=== PATIENT | female | born 1995 | race Caucasian/White ===

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

== ENCOUNTER → 2017-03-31 | Day surgery (SDC) | payer OTHER ==
[~2017-03-31] VITALS: Ht 167.6 cm; Wt 135.0 kg
[~2017-03-31] MED LIST changes: +ACET-1311 PO; -ADVIN25050 INH; -AMOX875T PO; -BCPILLS PO; +CEPH500C PO; +ENOX60IN SQ; +FLUT230A INH; +LIDOCAINE HCL 2% 2 ML VIAL (20MG/ML) ONE; +MIDAZOLAM HCL 1 MG/ML 2ML VIAL ONE; +OXYC-57 PO; +PANT40TA PO; +PROPOFOL IV EMULSION 10 MG/ML 20 ML VIAL IV ONE; +SODIUM CHLORIDE 0.9% 500ML 500 ML IV ONE
[2017-03-31 09:21] VITALS: Ht 167.6 cm; Wt 135.0 kg
--- NOTE | 2017-03-31 09:32 | Endo History and Physical ---
History & Physical Date of Service: Mar 31, 2017. Chief Complaint: gastric varices Referring Physician: Dr. Teja Ibarra History of Present Illness h/o bleeding varices Past Surgical History Hx Cardiac Surgery: No Hx Internal Defibrillator: No Hx Pacemaker: No Hx Abdominal Surgery: Yes (spleenectomy) Hx of Implantable Prosthesis: No Hx Cancer Surgery: No Hx Thoracic Surgery: No Hx Orthopedic: No Hx Urinary Tract Surgery: No Family History None Social History Smoking Status: Never Smoker Hx Substance Use: No Hx Alcohol Use: No Allergies Coded Allergies: Iodinated Diagnostic Agents (Verified Allergy, Intermediate, hives, 11/01/16 ) Current Medications Reported Home Medications Medications Dose Route/Sig Max Daily Dose Days Date Category Advair Hfa 230/21 Mcg (Fluticasone-Salmeterol 230/21 Mcg) 1 Aer Aer 1 Puffs INH BID 11/01/16 Reported Ventolin Hfa (Albuterol) 200 Puffs/87129 Mcg Aers 2-4 Puffs INH Q4H PRN 09/19/16 Reported Singulair (Montelukast Sodium) 10 Mg Tab 10 Mg PO DAILY 11/24/15 Reported Vital Signs Weight (Kilograms): 135 Height (Feet): 5 Height (Inches): 6 Physical Exam General Appearance: WD/WN, no apparent distress Assessment and Plan EGD today to re-evaluate varices
--- NOTE | 2017-03-31 10:23 | Discharge Instructions ---
Endoscopy Patient Instructions Date / Procedure(s) Performed Mar 31, 2017. EGD Allergy Information Coded Allergies: Iodinated Diagnostic Agents (Verified Allergy, Intermediate, hives, 11/01/16 ) Discharge Date / Findings Mar 31, 2017. coils visible in the stomach; small single column of varices in the esophagus. Medication Instructions Restart Stopped Medication(s): OK to resume home medications as above Provider Instructions Activity Restrictions - No exercising or heavy lifting for 24 hours. - Do not drink alcohol the day of the procedure. - Do not drive a car or operate machinery until the day after the procedure. - Do not make any important decisions or sign important papers in 24 hours after the procedure. Following Day: - Return to full activity which may include returning to work/school. Diet Start your diet with liquids and light foods (jello, soup, juice, toast). Then eat your usual diet if not nauseated. Treatment For Common After Affects For mild abdominal pain, bloating, or excessive gas: - Rest - Eat lightly - Lie on right side Follow-Up Information Follow-up with Dr. Teja Ibarra as scheduled Anesthesia Information What You Should Know You have had a procedure that required some medicine to reduce anxiety and discomfort. This treatment is called moderate sedation. After receiving the treatment, you may be sleepy, but you will be able to breathe on your own. The effects of the treatment may last for several hours. Follow these instructions along with Activity/Diet recommendations noted above: * Do NOT do anything where dizziness or clumsiness would be dangerous. * Rest quietly at home today, then you can be up and about tomorrow. * Have a responsible person stay with you the rest of today. * You may have had an I.V. today. If so, you may take the dressing off later today. Recommendations Call your doctor if: * Trouble breathing * Continuous vomiting for more than 24 hours * Temperature above 101 degrees * Severe abdominal pain or bloating * Pain not relieved by pain medicine ordered * There is increased drainage or redness from any incision * A large amount of rectal bleeding greater than 2-3 tablespoons. (If you had a polyp/s removed or have hemorrhoids, a small amount of blood - from the rectum is to be expected.) * You have any unanswered questions or concerns. IN THE EVENT OF A SERIOUS EMERGENCY, GO TO THE NEAREST EMERGENCY ROOM Your discharge instructions were prepared by provider Malini Adams. Patient Instructions Signature Page Gisselle Roger Patient (or Guardian) Signature/Date: I have read and understand the instructions given to me by my caregivers. Caregiver/RN/Doctor Signature/Date: The above-named patient and/or guardian has received patient instructions on this date. + Original Patient Signature Page (only) stays with chart. Please make copy for patient.
--- NOTE | 2017-03-31 10:30 | GI REPORT ---
Procedure Date: 03/31/2017 9:26 AM Procedure: Upper GI endoscopy Indications: Follow-up of esophageal varices with bleeding, Follow-up of gastric varices Medicines: Propofol per Anesthesia Complications: No immediate complications. Estimated blood loss: None. Estimated Blood Loss: Estimated blood loss: none. Procedure: Pre-Anesthesia Assessment: - Prior to the procedure, a History and Physical was performed, and patient medications, allergies and sensitivities were reviewed. The patient's tolerance of previous anesthesia was reviewed. - The risks and benefits of the procedure and the sedation options and risks were discussed with the patient. All questions were answered and informed consent was obtained. - Patient identification and proposed procedure were verified prior to the procedure by the physician and the nurse. The procedure was verified in the pre-procedure area in the procedure room. - Mental Status Examination: alert and oriented. Airway Examination: normal oropharyngeal airway and neck mobility. Respiratory Examination: clear to auscultation. CV Examination: normal. Abdominal Examination: bowel sounds present, abdomen soft and non-tender, no masses or organomegaly noted. - ASA Grade Assessment: II - A patient with mild systemic disease. After obtaining informed consent, the endoscope was passed under direct vision. Throughout the procedure, the patient's blood pressure, pulse, and oxygen saturations were monitored continuously. The Scope was introduced through the mouth, and advanced to the second part of duodenum. The upper GI endoscopy was accomplished without difficulty. The patient tolerated the procedure well. Findings: Grade I varices were found in the middle third of the esophagus. The entire examined stomach mucosa appears normal. Visible coils. The examined duodenum was normal. Impression: - Grade I esophageal varices. - Normal stomach. - Normal examined duodenum. - No specimens collected. Recommendation: - Discharge patient to home. Malini Adams D.O. Malini Adams DO 03/31/2017 10:29:45 AM This report has been signed electronically. Note Initiated On: 03/31/2017 9:26 AM I attest to the content of the Intraoperative Record and orders documented therein, exceptions below
[2017-03-31 10:54] VITALS: BP 118/79; PULSE 82; O2SAT 98
--- NOTE | 2017-03-31 11:05 | Anesthesiology Progress Note ---
Anesthesia Post Op Note Date & Time Mar 31, 2017 at 11:05 Vital Signs Pain Intensity: 0 Vital Signs Past 12 Hours Date Time Temp Pulse Resp B/P (MAP) Pulse Ox O2 Delivery O2 Flow Rate FiO2 03/31/17 10:54 82 20 118/79 (92) 98 Room Air 03/31/17 10:40 87 18 112/65 (81) 100 Room Air 03/31/17 10:28 61 18 95/54 (68) 100 Room Air 03/31/17 09:30 36.8 84 18 104/59 (74) 97 Room Air Notes Mental Status: alert / awake / arousable, participated in evaluation Pt Amnestic to Procedure: Yes Nausea / Vomiting: adequately controlled Pain: adequately controlled Airway Patency, RR, SpO2: stable & adequate BP & HR: stable & adequate Hydration State: stable & adequate Anesthetic Complications: no major complications apparent
== END | disposition home or self-care (01) ==
LOC: C.GI 08:58
PROVIDERS: ATTEND Internal Medicine
DX: I85.01 Esophageal varices with bleeding (principal)

== ENCOUNTER 2017-05-10 07:08 | Day surgery (SDC) | payer OTHER ==
[2017-05-04 11:26] VITALS: BMI 22.0
[~2017-05-10] VITALS: Ht 167.6 cm; Wt 62.0 kg
[~2017-05-10 07:08] MED LIST changes: -ACET-1311 PO; +CEFAZOLIN 2000 MG/60 ML D5W IV SCH; -CEPH500C PO; +DEXAMETHASONE SOD INJ 4 MG/ML VIAL ONE; -ENOX60IN SQ; +FENTANYL CITRATE INJ 50 MCG/1 ML 2 ML VIAL ONE; +GLYCOPYRROLATE INJ 0.2 MG/ML VIAL ONE; +LACTATED RINGER'S 1000ML 1,000 ML IV SCH; +NEOSTIGMINE METHYLSULFATE 5 MG/5 ML SYR ONE; +ONDANSETRON INJ 2 MG/ML 2 ML VIAL ONE; -OXYC-57 PO; -PANT40TA PO; +ROCURONIUM BROMIDE 10 MG/ML 5 ML VIAL ONE; -SODIUM CHLORIDE 0.9% 500ML 500 ML IV ONE
[2017-05-10 07:37] VITALS: BP 108/62; PULSE 82; TEMP 36.8; O2SAT 96; Ht 167.6 cm; Wt 62.0 kg
[2017-05-10 08:45] LABS: PREG INTERNAL NEGATIVE QC NEG CLEAR BACKGROUND; PREG INTERNAL POSITIVE QC POS CONTROL LINE
[2017-05-10] MEDS ORDERED: ATROPINE SULFATE 0.1 MG/ML 5ML SYR IV PRN (09:00)
[2017-05-10] MEDS ORDERED: EpHEDrine SULFATE INJ 50 MG/ML AMP IV PRN (09:00)
[2017-05-10] MEDS ORDERED: PHENYLEPHRINE 100MCG/ML 5ML SYR IV PRN (09:00)
[2017-05-10] MEDS ORDERED: ONDANSETRON INJ 2 MG/ML 2 ML VIAL IV PRN ×2 (09:00→11:00)
--- NOTE | 2017-05-10 09:09 | History & Physical Bridge Note ---
H&P Re-Evaluation Bridge Note: I have examined the patient, reviewed the History & Physical and in the interval since the performance of the History & Physical I have noted the following changes of clinical significance: No changes noted
[2017-05-10] MEDS ORDERED: BUPIVACAINE/EPINEPHRINE 0.5% MPF 1:200,000 10 ML VIAL ONE (09:39)
--- NOTE | 2017-05-10 09:43 | [facility] Operative Report ---
Operative Report Operative Date May 10, 2017. Pre-Operative Diagnosis Incisional hernia; large painful scar Post-Operative Diagnosis same with adhesions Procedure(s) Performed open incisional hernia repair with vicryl mesh;enterolysis;scar revision Surgeon abdelrahman Study Hall Supervisor Surgeon(s) Tony Benavidez PA-C Estimated Blood Loss 20 cc Findings 3 cm hernia;adhesions Anesthesia get Complication(s) None Disposition Recovery Room / PACU Description of Procedure After informed consent was obtained patient was taken the operating suite placed in supine position. After successful intubation the abdomen was sterilely prepped and draped in usual fashion. We made a wide elliptical incision around her previous widened and thickened abdominal scar. We began by using electrocautery to remove the scar and one large piece. This revealed approximately 3 cm hernia in the upper pole of the incision. With able take down the hernia sac using Metzenbaum scissors exposing the fascia below. We grabbed the fascia with Allis clamps and elevated it. There were some adhesions on the undersurface of the fascia. These were taken down using sharp scissor lysis as well as traction and countertraction. Once this was accomplished I then used 0 Ethibond in interrupted [id number] fashion to primarily close the defect. Once the defect was closed we then skeletonized some fascia for several centimeters in all directions around it. Because of discussions with the patient and family prior we elected to use an absorbable mesh. I placed a Vicryl mesh as an onlay securing it to the fascia using 0 Ethibond in interrupted fashion. The mesh did overlap for several centimeters in all directions. We did irrigate the wound prior to placing the mesh as well as after placing the mesh. Any small bleeding points were controlled using electrocautery. We then closed the incision in multiple layers using 2-0 Vicryl for deep layers and 4-0 Monocryl for skin. Marcaine with epinephrine was injected around the incision for postoperative analgesia. Benzoin Steri- Strips gauze and tape were used for dressing. The patient was awaken extubated and transferred recovery in stable condition I attest to the content of the Intraoperative Record and any orders documented therein. Any exceptions are noted below.
[2017-05-10] MEDS ORDERED: MoRPHine SULFATE 4 MG/ML 1 ML CARP\\VIAL IV PRN (11:00)
[2017-05-10] MEDS ORDERED: LACTATED RINGER'S 1000ML 1,000 ML IV SCH (11:00)
[2017-05-10] MEDS ORDERED: OXYCODONE/ACETAMINOPHEN 5-325 TAB PO PRN (11:00)
[2017-05-10] MEDS ORDERED: OXYC-57 PO (11:03)
--- NOTE | 2017-05-10 11:05 | Discharge Instructions ---
Discharge Instructions Date of Service May 10, 2017. Visit Reason for Visit: Incisional Hernia Discharge Discharge Diagnosis / Problem: repair of hernia, scar revision Discharge Goals Goal(s): Decrease discomfort Activity Recommendations Activity Limitations: as noted below Lifting Limitations: no more than 10 pounds Shower/Bathe: tomorrow Driving or Machine Use: resume 3 days after discharge (if not taking Percocet) Anesthesia . Post Anesthesia Instructions: If you have had General Anesthesia or IV Sedation: * Do not drive today. * Resume driving when surgeon permits. * Do not make important decisions or sign legal documents today. * Call surgeon for: 1. Temperature elevations greater than 101 degrees F. 2. Uncontrollable pain. 3. Excessive bleeding. 4. Persistent nausea and vomiting. 5. Medication intolerance (nausea, vomiting or rash). * For nausea and vomiting use only clear liquids such as: tea, soda, bouillon until nausea subsides, then gradually increase diet as tolerated. * If you have any concerns or questions, call your surgeon's office. If physician is unavailable and it is an emergency, call 911 or go to the nearest emergency room. . Instructions / Follow-Up Instructions / Follow-Up Dr. French in 1-2 weeks as planned, call [phone] if you have any questions or need to schedule Diet Recommendations Recommended Home Diet: no limitations Procedures Procedures Performed: Open Incisional Hernia Repair with Vicryl Mesh Pending Studies Studies pending at discharge: no Medical Emergencies . Who to Call and When: Medical Emergencies: If at any time you feel your situation is an emergency, please call 911 immediately. . Non-Emergent Contact Non-Emergency issues call your: Surgeon Call Non-Emergent contact if: you have a fever, temperature is above 101.5, your pain is not controlled, wound has increased drainage, wound has increased redness, you have any medication questions . . "Provider Documentation" section prepared by Maurilio Benavidez. .
[2017-05-10] MEDS: HYDROmorphone INJ 2 MG/ML SYR/VIAL IV PRN ×4 (11:12→11:27)
[2017-05-10 12:02] VITALS: BP 98/74; PULSE 90; TEMP 37; O2SAT 91
[2017-05-10 12:30] VITALS: BP 103/63; PULSE 90; TEMP 36.8; O2SAT 96
--- NOTE | 2017-05-10 12:45 | Anesthesiology Progress Note ---
Anesthesia Post Op Note Date & Time May 10, 2017 at 12:45 Vital Signs Pain Intensity: 5 Vital Signs Past 12 Hours Date Time Temp Pulse Resp B/P (MAP) Pulse Ox O2 Delivery O2 Flow Rate FiO2 05/10/17 12:30 36.8 90 18 103/63 96 Nasal Cannula 2 05/10/17 12:02 37.0 90 18 98/74 91 Room Air 05/10/17 11:50 36.8 92 21 108/76 92 Room Air 05/10/17 11:40 36.8 85 21 106/70 99 Mask 10 05/10/17 11:30 99 21 113/73 99 Mask 10 05/10/17 11:20 95 21 118/70 100 Mask 10 05/10/17 11:10 106 21 122/79 100 Mask 10 05/10/17 11:04 37.5 104 21 128/81 100 Mask 10 05/10/17 07:37 36.8 82 18 108/62 (77) 96 Room Air Notes Mental Status: alert / awake / arousable, participated in evaluation Pt Amnestic to Procedure: Yes Nausea / Vomiting: adequately controlled Pain: adequately controlled Airway Patency, RR, SpO2: stable & adequate BP & HR: stable & adequate Hydration State: stable & adequate Anesthetic Complications: no major complications apparent
[2017-05-10 13:00] VITALS: BP 103/63; PULSE 83; TEMP 36.4; O2SAT 92
[2017-05-10] MEDS ORDERED: NURSING VERBAL MED ORDER ONE (13:15)
[2017-05-10] MEDS ORDERED: DEXAMETHASONE INJ 4 MG in SYRINGE 0 ML IV ONE (13:30)
[2017-05-10 13:35] VITALS: BP 106/58; PULSE 75; O2SAT 96
[2017-05-10 14:00] VITALS: BP 110/57; PULSE 87; TEMP 36.4; O2SAT 95
== END 2017-05-10 14:32 | disposition home or self-care (01) ==
LOC: C.OR 07:08
PROVIDERS: ATTEND Surgery
DX: K43.2 Incisional hernia without obstruction or gangrene (principal); I81 Portal vein thrombosis; Z79.899 Other long term (current) drug therapy; L90.5 Scar conditions and fibrosis of skin

== ENCOUNTER 2017-06-18 09:10 | Observation (INO) | payer OTHER ==
[~2017-06-18] VITALS: Ht 167.6 cm; Wt 61.6 kg
[~2017-06-18 09:10] MED LIST changes: -CEFAZOLIN 2000 MG/60 ML D5W IV SCH; -DEXAMETHASONE SOD INJ 4 MG/ML VIAL ONE; -FENTANYL CITRATE INJ 50 MCG/1 ML 2 ML VIAL ONE; -GLYCOPYRROLATE INJ 0.2 MG/ML VIAL ONE; -LACTATED RINGER'S 1000ML 1,000 ML IV SCH; -LIDOCAINE HCL 2% 2 ML VIAL (20MG/ML) ONE; -MIDAZOLAM HCL 1 MG/ML 2ML VIAL ONE; -NEOSTIGMINE METHYLSULFATE 5 MG/5 ML SYR ONE; -ONDANSETRON INJ 2 MG/ML 2 ML VIAL ONE; +OXYC-57 PO; -PROPOFOL IV EMULSION 10 MG/ML 20 ML VIAL IV ONE; -ROCURONIUM BROMIDE 10 MG/ML 5 ML VIAL ONE
[2017-06-18] MEDS ORDERED: SODIUM CHLORIDE 0.9% 1000ML 1,000 ML IV STA (09:34)
[2017-06-18 09:57] LABS: BASO % 0.9 %; BASO ABS # 0.06 K/uL (0-0.2); COMPLETE YES; EOS % 6.3 %; HEMATOCRIT 42.1 % (37-47); IG% 0.2 %; LYMPH % 30.5 %; MEAN CELL VOLUME 82.7 fL (80-100); MEAN CORPUSCULAR HEMOGLOBIN 27.3 pg (25-34); MEAN PLATELET VOLUME 9.5 fL (7.4-10.4); NEUT % 53.1 %; PLATELET COUNT 422 K/uL (130-400); RED BLOOD COUNT 5.09 M/uL (4.2-5.4); WHITE BLOOD COUNT 6.56 K/uL (4.8-10.8)
[2017-06-18 10:07] LABS: INR 1.1 (0.9-1.1); PROTHROMBIN TIME (PATIENT) 11.4 SECONDS (9.0-12.0)
[2017-06-18 10:20] LABS: CALCIUM 9.6 mg/dl (8.5-10.1); CREATININE 0.72 mg/dl (0.60-1.20); POTASSIUM 3.8 mmol/L (3.5-5.1)
[2017-06-18] MEDS ORDERED: PANTOprazole INJ 80 MG in DEXTROSE 5% 100ML IV ONE (11:00)
[2017-06-18 11:03] VITALS: O2SAT 96; Ht 167.6 cm; Wt 61.6 kg
[2017-06-18] MEDS ORDERED: OCTREOTIDE IV BOLUS & DRIP IV STA ×2 (11:06→11:52)
[2017-06-18] MEDS ORDERED: PANTOprazole INJ 40 MG in DEXTROSE 5% 100ML IV SCH (11:15)
--- NOTE | 2017-06-18 11:43 | Gastrointestinal Consultation ---
Gastrointestinal Consultation Date of Consultation: Jun 18, 2017 Attending Physician: Zachary Consulting Physician: Carl Reason for Consultation: Variceal bleed History of Present Illness Patient is a 22 year old female w/ history of variceal bleed on 09/20/16 due to gastric varices as a result of portal vein thrombosis. Pt was hypotensive during EGD, scope withdrawn and a Bharat tube was placed. She was transferred to [facility] [place], underwent IR coiling or her gastric varices without hemostasis. She was transferred to [facility], where she underwent splenectomy ( splenorenal shunt had been planned, but prior endovascular intervention made this problematic). Pt had repeat EGD in March with small esophageal varices. Doing well since March, history of NSAIDs use BID x 2 days, and some nausea. Had episode of hematemesis this AM that was bright red, no clots. No coffee ground emesis. No black or bloody stools. No abdominal pain. VSS, H&H stable. Past Medical/Surgical History Medical Problems: (1) Upper GI hemorrhage Status: Acute Past Medical History: varices Past Surgical History: EGD, splenectomy Family History Patient reports no known family medical history. Social History Smoking Status: Never Smoker Alcohol Use: occasionally Drug Use: none Marital Status: single Occupation Status: [employer] student Allergies Coded Allergies: Iodinated Diagnostic Agents (Verified Allergy, Intermediate, hives, ) Current Medications Home Meds and Scripts Medications Dose Route/Sig Max Daily Dose Days Date Category Advair Hfa 230/21 Mcg (Fluticasone-Salmeterol 230/21 Mcg) 1 Aer Aer 1 Puffs INH BID 11/01/16 Reported Ventolin Hfa (Albuterol) 200 Puffs/44488 Mcg Aers 2-4 Puffs INH Q4H PRN 09/19/16 Reported Review of Systems Constitutional: No fever, No chills Respiratory: No cough Cardiac: No chest pain, No edema Abdomen: + vomiting, + GI bleeding, No pain, No nausea, No diarrhea, No constipation Physical Exam Date Time Temp Pulse Resp B/P (MAP) Pulse Ox O2 Delivery O2 Flow Rate FiO2 06/18/17 11:03 96 Room Air 06/18/17 10:11 83 16 112/67 96 Room Air 06/18/17 09:45 98 06/18/17 09:40 96 Room Air 06/18/17 09:20 36.9 94 16 115/69 96 Room Air General Appearance: no apparent distress Eyes: PERRL ENT: hearing grossly normal Neck: supple Respiratory/Chest: lungs clear Cardiovascular: regular rate, rhythm, no edema Abdomen: normal bowel sounds, non tender, soft, no organomegaly Neurologic/Psych: alert, normal mood/affect, oriented x 3 Skin: normal color, no jaundice Laboratory Results Last 24 Hours Test 06/18/17 09:47 White Blood Count 6.56 K/uL Red Blood Count 5.09 M/uL Hemoglobin 13.9 g/dL Hematocrit 42.1 % Mean Corpuscular Volume 82.7 fL Mean Corpuscular Hemoglobin 27.3 pg Mean Corpuscular Hemoglobin Concent 33.0 g/dl Platelet Count 422 K/uL Mean Platelet Volume 9.5 fL Neutrophils (%) (Auto) 53.1 % Lymphocytes (%) (Auto) 30.5 % Monocytes (%) (Auto) 9.0 % Eosinophils (%) (Auto) 6.3 % Basophils (%) (Auto) 0.9 % Neutrophils # (Auto) 3.49 K/uL Lymphocytes # (Auto) 2.00 K/uL Monocytes # (Auto) 0.59 K/uL Eosinophils # (Auto) 0.41 K/uL Basophils # (Auto) 0.06 K/uL RDW Standard Deviation 57.1 fL RDW Coefficient of Variation 18.8 % Immature Granulocyte % (Auto) 0.2 % Immature Granulocyte # (Auto) 0.01 K/uL Prothrombin Time 11.4 SECONDS Prothromb Time International Ratio 1.1 Activated Partial Thromboplast Time 25.0 SECONDS Partial Thromboplastin Ratio 1.0 Sodium Level 140 mmol/L Potassium Level 3.8 mmol/L Chloride Level 108 mmol/L Carbon Dioxide Level 25 mmol/L Anion Gap 7.0 mmol/L Blood Urea Nitrogen 11 mg/dl Creatinine 0.72 mg/dl Est Creatinine Clear Calc Drug Dose 116.6 ml/min Estimated GFR () 139.7 Estimated GFR (Non- 120.6 BUN/Creatinine Ratio 15.0 Random Glucose 85 mg/dl Calcium Level 9.6 mg/dl Total Bilirubin 0.7 mg/dl Direct Bilirubin 0.2 mg/dl Aspartate Amino Transf (AST/SGOT) 15 U/L Alanine Aminotransferase (ALT/SGPT) 26 U/L Alkaline Phosphatase 69 U/L Total Protein 7.9 gm/dl Albumin 4.0 gm/dl Lipase 143 U/L Impression 22 year old female w/ history of esophageal bleed in August seen in ED for one isolated episode of hematemesis, suspect variceal bleed. VSS, H&H stable. Admit to floor. Plan NPO EGD IV Octreotide bolus and drip IV Rocephin IV PPI bolus and drip Trend H&H Transfuse for Hgb < 8 No NSAID ATTESTATION: I have performed a history and physical examination of this patient and reviewed the electronic record. Specifically, on physical examination she is hemodynamically stable without abdominal tenderness. I have discussed the case with RICHARD Beltran. The above note reflects my findings, conclusions, and recommendations. Maciel Henry MD
[2017-06-18] MEDS ORDERED: OCTREOTIDE ACETATE INJ 500 MCG in NSS 100ML IV SCH (12:00)
[2017-06-18] MEDS ORDERED: OCTREOTIDE ACETATE INJ 100 MCG in SYRINGE 9 ML IV ONE (12:00)
[2017-06-18] MEDS ORDERED: ONDANSETRON INJ 2 MG/ML 2 ML VIAL IV PRN ×2 (12:00→14:00)
[2017-06-18] MEDS ORDERED: ONDANSETRON INJ 2 MG/ML 2 ML VIAL ONE ×2 (12:03→14:48)
--- NOTE | 2017-06-18 12:04 | History and Physical ---
History & Physical Date & Time of Service: Jun 18, 2017 at 11:54 Chief Complaint: Vomiting Blood Primary Care Physician: Teja Alfonso M.D. History of Present Illness Source: patient Pt is a 22 yo female who presents to ER with am episode of hematemesis this AM. Pt reports just one episode with only a small amt she brought up noted to be bright red. Pt reports having a productive cough past 2 days and taking cple ibuprofen tablets yesterday. Pt has notable hx of varcieal bleed on 09/21/16 in which [place] was [place] [facility] and then transferred to [facility] in which she had underwent IR coiling and subsequently a splenectomy. Pt denies any fevers, chills, abd pain, N/V/D, blood in stools. Family History Patient reports no known family medical history. Social History Smoking Status: Never Smoker Smokeless Tobacco Use: Yes Drug Use: none Marital Status: single Occupational Status: [employer] student Multi-Drug Resistant Organisms History of MDRO: No Allergies Coded Allergies: Iodinated Diagnostic Agents (Verified Allergy, Intermediate, hives, ) Home Medications Scheduled Fluticasone-Salmeterol 230/21 Mcg (Advair Hfa 230/21 Mcg), 1 PUFFS INH BID Scheduled PRN Albuterol Hfa (Ventolin Hfa), 2-4 PUFFS INH Q4H PRN for SOB/Wheezing Review of Systems Constitutional: No fever, No chills, No sweats, No weight loss, No weakness Respiratory: + cough, + sputum, No wheezing, No shortness of breath, No dyspnea on exertion, No dyspnea at rest Cardiovascular: No chest pain, No orthopnea, No PND, No edema Abdomen: + GI bleeding, No pain, No nausea, No vomiting, No diarrhea Musculoskeletal: No joint pain, No muscle pain, No swelling, No calf pain Genitourinary - Female: No dysuria, No urinary frequency, No urinary urgency, No urinary incontinence Neurologic: No memory loss, No paralysis, No weakness, No numbness/tingling Psychiatric: No depression symptoms, No anhedonism, No anxiety, No insomnia Endocrine: No fatigue, No excessive thirst, No excessive urination Integumentary: No rash, No itch, No new/changing skin lesions Allergic / Immunologic: No environmental allergies, No seasonal allergies Physical Exam Vital Signs Date Time Temp Pulse Resp B/P (MAP) Pulse Ox O2 Delivery O2 Flow Rate FiO2 06/18/17 11:03 96 Room Air 06/18/17 10:11 83 16 112/67 96 Room Air 06/18/17 09:45 98 06/18/17 09:40 96 Room Air 06/18/17 09:20 36.9 94 16 115/69 96 Room Air General Appearance: WD/WN, no apparent distress Head: normocephalic, atraumatic Eyes: normal inspection, PERRL, EOMI, sclerae normal Neck: supple, no adenopathy, thyroid normal, no JVD Respiratory/Chest: chest non-tender, lungs clear, normal breath sounds, no respiratory distress Cardiovascular: regular rate, rhythm, no edema, no gallop, no JVD Abdomen/GI: normal bowel sounds, non tender, soft, no organomegaly Extremities/Musculoskelatal: normal inspection, no calf tenderness, normal capillary refill, no pedal edema Neurologic/Psych: no motor/sensory deficits, alert, normal mood/affect, normal reflexes, oriented x 3 Skin: normal color, warm/dry, no rash Lymphatic: no adenopathy Diagnostics Laboratory Results Results Past 24 Hours Test 06/18/17 09:47 Range/Units White Blood Count 6.56 4.8-10.8 K/uL Red Blood Count 5.09 4.2-5.4 M/uL Hemoglobin 13.9 12.0-16.0 g/dL Hematocrit 42.1 37-47 % Mean Corpuscular Volume 82.7 80-100 fL Mean Corpuscular Hemoglobin 27.3 25-34 pg Mean Corpuscular Hemoglobin Concent 33.0 32-36 g/dl Platelet Count 422 130-400 K/uL Mean Platelet Volume 9.5 7.4-10.4 fL Neutrophils (%) (Auto) 53.1 % Lymphocytes (%) (Auto) 30.5 % Monocytes (%) (Auto) 9.0 % Eosinophils (%) (Auto) 6.3 % Basophils (%) (Auto) 0.9 % Neutrophils # (Auto) 3.49 1.4-6.5 K/uL Lymphocytes # (Auto) 2.00 1.2-3.4 K/uL Monocytes # (Auto) 0.59 0.11-0.59 K/uL Eosinophils # (Auto) 0.41 0-0.5 K/uL Basophils # (Auto) 0.06 0-0.2 K/uL RDW Standard Deviation 57.1 36.4-46.3 fL RDW Coefficient of Variation 18.8 11.5-14.5 % Immature Granulocyte % (Auto) 0.2 % Immature Granulocyte # (Auto) 0.01 0.00-0.02 K/uL Prothrombin Time 11.4 9.0-12.0 SECONDS Prothromb Time International Ratio 1.1 0.9-1.1 Activated Partial Thromboplast Time 25.0 21.0-31.0 SECONDS Partial Thromboplastin Ratio 1.0 Sodium Level 140 136-145 mmol/L Potassium Level 3.8 3.5-5.1 mmol/L Chloride Level 108 98-107 mmol/L Carbon Dioxide Level 25 21-32 mmol/L Anion Gap 7.0 3-11 mmol/L Blood Urea Nitrogen 11 7-18 mg/dl Creatinine 0.72 0.60-1.20 mg/dl Est Creatinine Clear Calc Drug Dose 116.6 ml/min Estimated GFR () 139.7 Estimated GFR (Non- 120.6 BUN/Creatinine Ratio 15.0 10-20 Random Glucose 85 70-99 mg/dl Calcium Level 9.6 8.5-10.1 mg/dl Total Bilirubin 0.7 0.2-1 mg/dl Direct Bilirubin 0.2 0-0.2 mg/dl Aspartate Amino Transf (AST/SGOT) 15 15-37 U/L Alanine Aminotransferase (ALT/SGPT) 26 12-78 U/L Alkaline Phosphatase 69 45-117 U/L Total Protein 7.9 6.4-8.2 gm/dl Albumin 4.0 3.4-5.0 gm/dl Lipase 143 73-393 U/L Impression Assessment and Plan Pt is a 22 yo female who present to ER with hematemesis Hematemesis with hx of variceal bleed this past trish. Hg and vitals stable at this time. Will place on octreotide drip in addition to protonix drip. No further episodes noted in ER. GI consulted and will do EGD this AM. Cont NPO status. Started on IV NS at 100 cc/hr. Will obtain serial HHs. Pt will be placed on observation telemetry. Tachycardia likely related to anxiety/GI bleed, cont to monitor pt is FULL CODE Advanced Directives Existing Living Will: No Existing Power of Audio Narrator: No VTE Prophylaxis VTE Risk Assessment Done? Y/N: Yes Risk Level: Moderate
[2017-06-18] MEDS ORDERED: ALBUTEROL HFA 8 GM INHALER INH PRN (12:15)
[2017-06-18] MEDS ORDERED: SUCCINYLCHOLINE CHLORIDE 20 MG/ML 10 ML VIAL IV ONE (13:32)
[2017-06-18] MEDS ORDERED: PROPOFOL IV EMULSION 10 MG/ML 20 ML VIAL IV ONE (13:32)
[2017-06-18] MEDS ORDERED: LIDOCAINE HCL 2% 2 ML VIAL (20MG/ML) ONE (13:32)
[2017-06-18] MEDS ORDERED: MIDAZOLAM HCL 1 MG/ML 2ML VIAL ONE (13:33)
[2017-06-18] MEDS ORDERED: FENTANYL CITRATE INJ 50 MCG/1 ML 2 ML VIAL ONE (13:33)
[2017-06-18] MEDS ORDERED: EpHEDrine SULFATE INJ 50 MG/ML AMP IV PRN (14:00)
[2017-06-18] MEDS ORDERED: ATROPINE SULFATE 0.1 MG/ML 5ML SYR IV PRN (14:00)
[2017-06-18] MEDS ORDERED: FENTANYL CITRATE INJ 50 MCG/1 ML 2 ML VIAL IV PRN (14:00)
[2017-06-18] MEDS ORDERED: IV FLUIDS COMPLETED PRN (14:15)
[2017-06-18] MEDS ORDERED: DEXAMETHASONE SOD INJ 4 MG/ML VIAL ONE (14:48)
--- NOTE | 2017-06-18 14:59 | GI REPORT ---
Procedure Date: 06/18/2017 1:44 PM Procedure: Upper GI endoscopy Indications: Hematemesis Medicines: General Anesthesia Complications: No immediate complications. Estimated blood loss: None. Estimated Blood Loss: Estimated blood loss: none. Procedure: Pre-Anesthesia Assessment: - Prior to the procedure, a History and Physical was performed, and patient medications, allergies and sensitivities were reviewed. The patient's tolerance of previous anesthesia was reviewed. - ASA Grade Assessment: III - A patient with severe systemic disease. After obtaining informed consent, the endoscope was passed under direct vision. Throughout the procedure, the patient's blood pressure, pulse, and oxygen saturations were monitored continuously. The Scope was introduced through the mouth, and advanced to the third part of duodenum. The upper GI endoscopy was accomplished with ease. The patient tolerated the procedure well. Findings: Small (< 5 mm) varices were found in the lower third of the esophagus. A large tangle of vascular coil was found extruding through the gastic wall in the proximal body, with a single strand extending through the stomach beyond the distal duodenum. There was no active bleeding but there was a small clot in the coil that easily washed away. There is no endoscopic evidence of varices in the entire examined stomach. The examined duodenum was normal. Impression: - Small (< 5 mm) esophageal varices. - A vascular coil was found extruding through the wall of the proximal stomach (see above and photos). - Normal examined duodenum. - No specimens collected. Recommendation: - Consider transfer to tertiary care institution. CT abd/pelvis Maciel Henry M.D. Maciel Henry MD 06/18/2017 2:58:32 PM This report has been signed electronically. Note Initiated On: 06/18/2017 1:44 PM I attest to the content of the Intraoperative Record and orders documented therein, exceptions below
--- NOTE | 2017-06-18 15:17 | Anesthesiology Progress Note ---
Anesthesia Post Op Note Date & Time Jun 18, 2017 at 15:17 Vital Signs Pain Intensity: 0 Vital Signs Past 12 Hours Date Time Temp Pulse Resp B/P (MAP) Pulse Ox O2 Delivery O2 Flow Rate FiO2 06/18/17 15:15 37 95 20 114/62 99 Nasal Cannula 3 06/18/17 15:05 91 20 114/60 99 Nasal Cannula 3 06/18/17 14:55 97 20 106/61 99 Oxymask 10 06/18/17 14:45 37.2 112 20 107/61 99 Oxymask 10 06/18/17 13:44 84 18 102/70 96 06/18/17 13:19 82 16 101/58 96 Room Air 06/18/17 12:01 88 20 112/82 96 Room Air 06/18/17 11:03 96 Room Air 06/18/17 10:11 83 16 112/67 96 Room Air 06/18/17 09:45 98 06/18/17 09:40 96 Room Air 06/18/17 09:20 36.9 94 16 115/69 96 Room Air Notes Mental Status: alert / awake / arousable, participated in evaluation Pt Amnestic to Procedure: Yes Nausea / Vomiting: adequately controlled Pain: adequately controlled Airway Patency, RR, SpO2: stable & adequate BP & HR: stable & adequate Hydration State: stable & adequate Anesthetic Complications: no major complications apparent
[2017-06-18] MEDS ORDERED: INFLUENZA ADMINISTRATION CHARGE ONE (15:30)
[2017-06-18] MEDS ORDERED: INFLUENZA VIRUS QUAD VACCINE 0.5 ML SYR IM. ONE (15:30)
--- NOTE | 2017-06-18 15:40 | EMERGENCY ROOM VISIT NOTE ---
History Report prepared by Samuel: Yolis Mayo Under the Supervision of: Dr. Pete Sharma D.O. First contact with patient: 09:33 Chief Complaint: VOMITING Stated Complaint: VOMITING BLOOD Nursing Triage Summary: Pt c/o puking up blood. States she vomited one time. Denies abdominal pain, diarrhea. Hx varicies in her esophagus. 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 April surgery for hernia at incision site. History of Present Illness The patient is a 22 year old female who presents to the Emergency Room with complaints of one episode of hematemesis that occurred this morning. 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 She states that she has been feeling nauseous all week and reports one episode of hematemesis today. 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 She states that she had a hernia repaired in April. The patient reports a history of a peptic ulcer. She denies being on blood thinners and denies any clotting disorders. The patient states that when she vomited blood this morning, she denies it being more than her last time. She states that her last menstrual cycle was 1 week ago, noting that it was normal. Pt denies headache, change in vision, fevers, chest pain, shortness of breath , diarrhea, pain with urination, hematochezia and melena. Source of History: patient Onset: this morning Position: other (global) Quality: other (hematemesis) Timing: other (one episode) Associated Symptoms: + nausea, + vomiting Review of Systems See HPI for pertinent positives & negatives. A total of 10 systems reviewed and were otherwise negative. Past Medical & Surgical Medical Problems: (1) Asthma (2) GIB (gastrointestinal bleeding) (3) Hematemesis Social History Problems: (1) Uses control Family History Patient reports no known family medical history. Social History Smoking Status: Never Smoker Alcohol Use: occasionally Drug Use: none Marital Status: single Occupation Status: [employer] student Current/Historical Medications Scheduled Fluticasone-Salmeterol 230/21 Mcg (Advair Hfa 230/21 Mcg), 1 PUFFS INH BID Scheduled PRN Albuterol Hfa (Ventolin Hfa), 2-4 PUFFS INH Q4H PRN for SOB/Wheezing Allergies Coded Allergies: Iodinated Diagnostic Agents (Verified Allergy, Intermediate, hives, ) Physical Exam Vital Signs Date Time Temp Pulse Resp B/P (MAP) Pulse Ox O2 Delivery O2 Flow Rate FiO2 06/18/17 15:15 37 95 20 114/62 99 Nasal Cannula 3 06/18/17 15:05 91 20 114/60 99 Nasal Cannula 3 06/18/17 14:55 97 20 106/61 99 Oxymask 10 06/18/17 14:45 37.2 112 20 107/61 99 Oxymask 10 06/18/17 13:44 84 18 102/70 96 06/18/17 13:19 82 16 101/58 96 Room Air 06/18/17 12:01 88 20 112/82 96 Room Air 06/18/17 11:03 96 Room Air 06/18/17 10:11 83 16 112/67 96 Room Air 06/18/17 09:45 98 06/18/17 09:40 96 Room Air 06/18/17 09:20 36.9 94 16 115/69 96 Room Air Physical Exam GENERAL: alert, sitting up in bed, well appearing, well nourished, no distress, non-toxic EYE EXAM: normal conjunctiva. OROPHARYNX: no exudate, no erythema, lips, buccal mucosa, and tongue normal and mucous membranes are moist NECK: supple, no nuchal rigidity, no adenopathy, non-tender LUNGS: Clear to auscultation. Normal chest wall mechanics HEART: no murmurs, S1 normal and S2 normal ABDOMEN: abdomen soft, non-tender, normo-active bowel sounds, no masses, no rebound or guarding. BACK: Back is symmetrical on inspection and there is no deformity, no midline tenderness, no CVA tenderness. SKIN: no rashes and no bruising UPPER EXTREMITIES: upper extremities are grossly normal. LOWER EXTREMITIES: No pitting edema. NEURO EXAM: Normal sensorium, cranial nerves II-XII intact, normal speech, no gross weakness of arms, no gross weakness of legs. Medical Decision & Procedures Laboratory Results 06/18/17 09:47 Red Blood Count 5.09, Mean Corpuscular Volume 82.7, Mean Corpuscular Hemoglobin 27.3, Mean Corpuscular Hemoglobin Concent 33.0, Mean Platelet Volume 9.5, Neutrophils (%) (Auto) 53.1, Lymphocytes (%) (Auto) 30.5, Monocytes (%) (Auto) 9.0, Eosinophils (%) (Auto) 6.3, Basophils (%) (Auto) 0.9, Neutrophils # (Auto) 3.49, Lymphocytes # (Auto) 2.00, Monocytes # (Auto) 0.59, Eosinophils # (Auto) 0.41, Basophils # (Auto) 0.06 06/18/17 09:47 Test 06/18/17 09:47 White Blood Count 6.56 K/uL (4.8-10.8) Red Blood Count 5.09 M/uL (4.2-5.4) Hemoglobin 13.9 g/dL (12.0-16.0) Hematocrit 42.1 % (37-47) Mean Corpuscular Volume 82.7 fL (80-100) Mean Corpuscular Hemoglobin 27.3 pg (25-34) Mean Corpuscular Hemoglobin Concent 33.0 g/dl (32-36) Platelet Count 422 K/uL (130-400) Mean Platelet Volume 9.5 fL (7.4-10.4) Neutrophils (%) (Auto) 53.1 % Lymphocytes (%) (Auto) 30.5 % Monocytes (%) (Auto) 9.0 % Eosinophils (%) (Auto) 6.3 % Basophils (%) (Auto) 0.9 % Neutrophils # (Auto) 3.49 K/uL (1.4-6.5) Lymphocytes # (Auto) 2.00 K/uL (1.2-3.4) Monocytes # (Auto) 0.59 K/uL (0.11-0.59) Eosinophils # (Auto) 0.41 K/uL (0-0.5) Basophils # (Auto) 0.06 K/uL (0-0.2) RDW Standard Deviation 57.1 fL (36.4-46.3) RDW Coefficient of Variation 18.8 % (11.5-14.5) Immature Granulocyte % (Auto) 0.2 % Immature Granulocyte # (Auto) 0.01 K/uL (0.00-0.02) Prothrombin Time 11.4 SECONDS (9.0-12.0) Prothromb Time International Ratio 1.1 (0.9-1.1) Activated Partial Thromboplast Time 25.0 SECONDS (21.0-31.0) Partial Thromboplastin Ratio 1.0 Anion Gap 7.0 mmol/L (3-11) Est Creatinine Clear Calc Drug Dose 116.6 ml/min Estimated GFR () 139.7 Estimated GFR (Non- 120.6 BUN/Creatinine Ratio 15.0 (10-20) Calcium Level 9.6 mg/dl (8.5-10.1) Total Bilirubin 0.7 mg/dl (0.2-1) Direct Bilirubin 0.2 mg/dl (0-0.2) Aspartate Amino Transf (AST/SGOT) 15 U/L (15-37) Alanine Aminotransferase (ALT/SGPT) 26 U/L (12-78) Alkaline Phosphatase 69 U/L (45-117) Total Protein 7.9 gm/dl (6.4-8.2) Albumin 4.0 gm/dl (3.4-5.0) Lipase 143 U/L (73-393) Laboratory results per my review. Medications Administered Medications (Trade) Dose Ordered Sig/Cheikh Route Start Time Stop Time Status Last Admin Dose Admin Sodium Chloride 1,000 ml @ 999 mls/hr Q1H1M STAT IV 06/18/17 09:34 06/18/17 10:34 DC 06/18/17 10:10 999 MLS/HR Pantoprazole Sodium 80 mg/ Dextrose 120 ml @ 480 mls/hr NOW ONCE IV 06/18/17 11:00 06/18/17 11:14 DC 06/18/17 11:10 480 MLS/HR Pantoprazole Sodium 40 mg/ Dextrose 100 ml @ 20 mls/hr Q5H IV 06/18/17 11:15 06/18/17 16:14 06/18/17 11:10 20 MLS/HR Octreotide Acetate 100 mcg/ Syringe 10 ml @ 3 mls/min NOW ONCE IV 06/18/17 12:00 06/18/17 12:03 DC 06/18/17 11:57 3 MLS/MIN Octreotide Acetate 500 mcg/ Sodium Chloride 105 ml @ 10 mls/hr [id number] IV 06/18/17 12:00 06/18/17 22:29 06/18/17 11:57 10 MLS/HR Ondansetron HCl (Zofran Inj) 4 mg STK-MED ONCE .ROUTE 06/18/17 12:03 9/22/17 12:04 DC 06/18/17 12:06 4 MG ECG Indication: vomiting Rate (beats per minute): 55 Rhythm: sinus bradycardia Findings: no ectopy, other (right axis, early R wave progression) ED Course ED COURSE: Vital signs were reviewed and showed normal vitals The patients medical record was reviewed The above diagnostic studies were performed and reviewed. ED treatments and interventions as stated above. 0934: The patient was evaluated in room B5. A complete history and physical examination was performed by the medical student. Ordered Sodium Chloride 1000 ml @ 999 mls/hr IV. 1017: The patient was evaluated in room B5. A complete history and physical examination was performed. 1100: Ordered Pantoprazole Sodium 80 mg/Dextrose 120 ml @ 480 mls/hr IV. 1103: I discussed the patients case with [facility] RICHARD. She states that the patient should be evaluated for further treatment. 1115: Ordered Pantoprazole Sodium 40 mg/Dextrose 100 ml @ 20 mls/hr IV. 1122: I spoke to RICHARD [facility]. She states that Dr. Henry would like the patient transferred to another facility due to her history. She states that she will go evaluate the patient and talk to Dr. Henry again. 1133: I spoke to RICHARD [facility]. She states that Dr. Henry has agreed to scope the patient but would like her evaluated under the medicine service. 1136: I discussed the patients case with ANTHONY Fitch. He is going to evaluate the patient for further treatment. 1140: Upon reevaluation, the patient is resting comfortably.I discussed my findings with the patient and she understands and agrees with the treatment plan. Based on the patients age, coexisting illnesses, exam and lab findings the decision to treat as an inpatient was made. The patient remained stable while under my care. The patient will be evaluated for further management. 1200: Ordered Octreotide Acetate 500 mcg/Sodium Chloride 105 ml @ 10 mls/hr IV, Octreotide Acetate 100 mcg/Syringe 10 ml @ 3 mls/min IV. Medical Decision Differential diagnoses includes but is not limited to gastritis, peptic ulcer disease, GERD, gallbladder disease, pancreatitis, small bowel obstruction, acute coronary syndrome, pericarditis, ischemic bowel, irritable bowel disease, irritable bowel syndrome, appendicitis, diverticulitis, malignancy, hernia, urinary tract infection, torsion, /ectopic (if female), perforation, trauma, infectious. Patient is a 22-year-old female who presents to ER for hematemesis. 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 CBC all BMP, LFTs , bilirubin and lipase is unremarkable. INR was unremarkable. Patient was updated in regards to her findings. Patient was placed on a Protonix drip and bolus. She was given IV Rocephin. She was placed on octreotide drip and bolus with her known varices and hematemesis. GI was updated. Discussed case with internal medicine. Patient was updated. Patient was admitted for endoscopy with a likely variceal bleed. Medication Reconcilliation Current Medication List: was personally reviewed by me Blood Pressure Screening Patient's blood pressure: Normal blood pressure Blood pressure disposition: Did not require urgent referral Consults Time Called: 1044 Consulting Physician: Aracelis Beltran Returned Call: 1103 I discussed the patients case with Aracelis Beltran. She states that the patient should be evaluated for further treatment. Additional Consults: Time Called: 1132 Consulted Physician: ANTHONY Fitch Returned Call: 1136 Additional Comments: I discussed the patients case with ANTHONY Fitch. He is going to evaluate the patient for further treatment. Impression Primary Impression: Esophagovariceal bleed Additional Impression: GIB (gastrointestinal bleeding) Critical Care I have personally spent 35 minutes of critical care time in the direct management of this patient. This includes bedside care, interpretation of diagnostic studies, and testing, discussion with consultants, patient, and family members, and other required patient management activities. This 35 minutes is in excess of all separately billable procedures. Scribe Attestation The scribe's documentation has been prepared under my direction and personally reviewed by me in its entirety. I confirm that the note above accurately reflects all work, treatment, procedures, and medical decision making performed by me. Departure Information Dispostion Being Evaluated By Hospitalist Referrals Teja Alfonso M.D. (PCP) Problem Qualifiers Primary Impression: Esophagovariceal bleed Esophageal varices type: unspecified type Qualified Codes: I85.01 - Esophageal varices with bleeding Additional Impression: GIB (gastrointestinal bleeding) GI bleed type/associated pathology: unspecified gastrointestinal hemorrhage type Qualified Codes: K92.2 - Gastrointestinal hemorrhage, unspecified
[2017-06-18 16:00] VITALS: O2SAT 88
[2017-06-18] MEDS: SODIUM CHLORIDE 0.9% 1000ML 1,000 ML IV SCH (16:00)
[2017-06-18 16:03] LABS: HEMATOCRIT 37.3 % (37-47)
[2017-06-18] MEDS: PANTOprazole INJ 40 MG in DEXTROSE 5% 100ML IV SCH ×2 (16:04→20:45)
--- NOTE | 2017-06-18 16:30 | DIAGNOSTIC IMAGING REPORT ---
ABD/PELVIS NO IV OR ORAL CONT CLINICAL HISTORY: 22 years-old Female presenting with Foreign body stomach. TECHNIQUE: Multidetector CT of the abdomen and pelvis was performed without the use of intravenous contrast. IV contrast: None. A dose lowering technique was used consistent with the principles of ALARA (as low as reasonably achievable). COMPARISON: 11/01/2016. CT DOSE (mGy.cm): The estimated cumulative dose is 367.48 mGycm. FINDINGS: [employer] topogram: Endovascular coils project over the epigastrium. Multiple metallic curvilinear wires noted, not present on prior exam and consistent with foreign body. Lung bases: Lung bases clear. Normal heart size. No pericardial or pleural effusion. Liver: Normal morphology. Normal density. Biliary: No gross biliary ductal dilatation allowing for noncontrast technique. Normal gallbladder. Pancreas: Evaluation of the pancreas limited by noncontrast technique and extensive streak artifact arising from the endovascular coils. The previously noted round lesion at the pancreatic tail now measures 3.2 cm, previously 2.0 cm. Assessment of density is unreliable given the streak artifact. Mild peripancreatic inflammatory change in the region of the uncinate. This is not significantly changed from prior. No significant evidence of inflammatory change at the pancreatic tail. Spleen: Surgically absent. Associated endovascular coils in the region of the splenic artery. Adrenal glands: Left adrenal gland incompletely characterized. Right adrenal gland normal. Kidneys and ureters: Normal. No hydronephrosis. Bladder: Incompletely evaluated secondary to underdistention. Pelvic organs: Normal noncontrast appearance. Several prominent ovarian follicles noted. Bowel: Radiopaque metallic foreign body within the lumen of the stomach extends into the duodenum and proximal small bowel. The configuration of which is suggestive of the necklace. No evidence of wall thickening or obstruction. Peritoneal cavity: No free fluid or intraperitoneal gas. Vasculature: Normal noncontrast appearance. Lymph nodes: Scattered subcentimeter lymph nodes in the retroperitoneal region, possibly reactive. Abdominal wall: Postsurgical changes of the left upper quadrant likely from splenectomy. Musculoskeletal: Normal. IMPRESSION: 1. Findings consistent with foreign body within the stomach extending into the proximal small bowel. The appearance is most suggestive of a necklace. No evidence of perforation or bowel obstruction. Apparent postsurgical changes of splenectomy and endovascular coiling in the region of the splenic artery. Regional streak artifact degrades evaluation of the upper abdomen. 2. Increased size of the round lesion at the pancreatic tail, measuring 3.2 cm, previously 2 cm. Assessment is limited given absence of intravenous contrast and extensive streak artifact. Differential considerations include a solid or cystic lesion including a pseudocyst from prior pancreatitis or solid pseudopapillary tumor of the pancreas. 3. Mild retroperitoneal infiltration in the region of the uncinate is nonspecific. Minimal changes of acute pancreatitis cannot be excluded. Correlate with lipase. Alternatively, this may relate to mild edema in the setting of aggressive hydration. The report will be called/faxed according to standard departmental protocol. Electronically signed by: Drew Robins M.D. 06/18/2017 4:29 PM Dictated Date/Time: 06/18/2017 4:20 PM
--- NOTE | 2017-06-18 16:40 | Progress Note ---
Progress Note Date of Service Jun 18, 2017. Progress Note Spoke with Dr Bee s/p endoscopy Informed me that coil found protruding through gastric mucosa, protruding worse that previous endoscopy Will obtain CT abd/pelvis to identify full location of coil Currently Hg stable and vitals stable No need to transfer If stable can discharge tomorrow with F/U GI
[2017-06-18 19:40] LABS: URINE APPEARANCE CLEAR (CLEAR); URINE BILIRUBIN NEG (NEG); URINE COLOR YELLOW; URINE NITRITE NEG (NEG); URINE PH 6.5 (4.5-7.5); UROBILINOGEN NEG (NEG)
[2017-06-18 19:44] VITALS: BP 102/54; PULSE 69; TEMP 36.7; O2SAT 98
[2017-06-18 19:52] LABS: MANUAL MICROSCOPIC REQUIRED? NO; REVIEW REQ? NO
[2017-06-18] MEDS: OCTREOTIDE ACETATE INJ 500 MCG in NSS 100ML IV SCH (21:27)
[2017-06-18 22:48] LABS: HEMATOCRIT 37.6 % (37-47)
[2017-06-19 00:05] VITALS: BP 96/58; PULSE 60; TEMP 36.4; O2SAT 98
[2017-06-19] MEDS: PANTOprazole INJ 40 MG in DEXTROSE 5% 100ML IV SCH ×2 (01:18→05:07)
[2017-06-19] MEDS: SODIUM CHLORIDE 0.9% 1000ML 1,000 ML IV SCH ×2 (01:20→08:50)
[2017-06-19 04:05] VITALS: BP 112/65; PULSE 82; TEMP 36.8; O2SAT 95
[2017-06-19 07:19] LABS: HEMATOCRIT 36.3 % (37-47)
[2017-06-19] MEDS: OCTREOTIDE ACETATE INJ 500 MCG in NSS 100ML IV SCH (07:56)
[2017-06-19 08:00] VITALS: BP 108/66; PULSE 53; TEMP 36.7; O2SAT 99
[2017-06-19] MEDS ORDERED: PANT40TA PO (09:51)
--- NOTE | 2017-06-19 09:53 | Discharge Instructions ---
Discharge Instructions Date of Service Jun 19, 2017. Admission Reason for Admission: GIB Discharge Discharge Diagnosis / Problem: GIB secondary to migration of venous coils Discharge Goals Goal(s): Diagnostic testing, Therapeutic intervention Activity Recommendations Activity Limitations: resume your previous activity . Current Hospital Diet Patient's current hospital diet: Regular Diet Discharge Diet Recommended Diet: Regular Diet Procedures Procedures Performed: Esophagogastroduodenoscopy Pending Studies Studies pending at discharge: no Medical Emergencies . Who to Call and When: Medical Emergencies: If at any time you feel your situation is an emergency, please call 911 immediately. . Non-Emergent Contact Non-Emergency issues call your: Primary Care Provider, Postdoctoral Fellow Call Non-Emergent contact if: temperature is above 101, your pain is unusual for you . . "Provider Documentation" section prepared by Joe Mills. . VTE Core Measure Inpt VTE Proph given/why not?: Contraindicated
--- NOTE | 2017-06-19 11:31 | GASTROENTEROLOGY PROGRESS NOTE ---
DATE: 06/19/2017 SUBJECTIVE: Gisselle is doing extremely well. She has had no further evidence of bleeding and denies abdominal pain. She is resting comfortably in bed. Her hemoglobin has also remained stable overnight. I discussed her case with Dr. Henry upon sign out and reviewed her upper endoscopy report and imaging studies. The mother is at the bedside as well. She states she is hungry and would like to start eating. PHYSICAL EXAMINATION: VITAL SIGNS: Currently, her most recent temperature is 36.8, pulse is 82, and blood pressure is 112/65. SKIN: Anicteric. EYES: Show anicteric sclerae. MOUTH: Clear of lesions. NECK: Supple. CHEST: Clear. HEART: Regular rate and rhythm. ABDOMEN: Soft with good bowel sounds. There is no organomegaly, masses, or rebound tenderness noted. EXTREMITIES: Warm with good distal pulses and no edema. NEUROLOGIC: She is grossly intact and alert and oriented x3. LABORATORY DATA: Shows a hemoglobin that is stable at 12. Liver enzymes are normal. 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 She was born prematurely and her mother states that she had catheterization of her umbilicus during her early days. This history may explain the origin of her PVT and gastric and esophageal varices being a complication from her premature course. She eventually needed coiling of gastric veins and splenectomy due to life threatening gastric variceal bleeding. It appears now that the coils are being expelled into the stomach and it seems that a large portion of the vascular coils are now intraabdominal. Endoscopy report confirmed this. She has not had any aggressive bleeding. Right now, I think I would slowly advance her diet. I think it is safe to be discharged and she should be on a daily proton pump inhibitor to prevent further ulceration of the site where the coil is being expelled. I will message Dr. Adams, who follows her as an outpatient about this admission and I recommend that she also follow up with vascular surgery in [place] to make sure that no further workup needs to be done and if it is save to allow these coils to continue to erode through. It appears that the most likely these will progressively enter into the stomach and be passed, though because there is some uncoiling as well and migration down to the small intestine, it is unclear whether debulking of the coil may be helpful. This can be handled as an outpatient at this point. She has been told to return for any signs or symptoms of aggressive bleeding or severe pain. JUANITA
[2017-06-19 11:34] VITALS: BP 98/72; PULSE 52; TEMP 36.8; O2SAT 93
[2017-06-19 11:55] VITALS: BP 98/72; PULSE 52; TEMP 36.8; O2SAT 93
--- NOTE | 2017-06-19 15:10 | Discharge Summary ---
Discharge Summary Date of Service Jun 19, 2017. Discharge Summary Admission Date: Jun 18, 2017 at 11:51 Discharge Date: Jun 19, 2017 Discharge Disposition: Home Principal Diagnosis: gib from migration of foreign body Procedures: CT of abdomen, EGD showing small esophageal varicies and migration and erosion of previous variceal coil Consultations: Gastroenterology Medication Reconciliation New Medications: Pantoprazole (Protonix) 40 Mg Tab 40 MG PO DAILY, #30 TAB 3 Refills Continued Medications: Albuterol Hfa (Ventolin Hfa) 200 Puffs/89538 Mcg Aers 2-4 PUFFS INH Q4H PRN for SOB/Wheezing, #1 INHALER Fluticasone-Salmeterol 230/21 Mcg (Advair Hfa 230/21 Mcg) 1 Aer Aer 1 PUFFS INH BID, AER Discharge Exam Review of Systems: Constitutional: No fever, No chills Respiratory: No cough, No sputum, No shortness of breath Cardiovascular: No chest pain, No orthopnea, No edema Abdomen: No pain, No nausea, No diarrhea Physical Exam: General Appearance: WD/WN, no apparent distress Neck: supple, no JVD Respiratory/Chest: chest non-tender, lungs clear, normal breath sounds Cardiovascular: regular rate, rhythm, no murmur Extremities: no pedal edema, normal range of motion Hospital Course 22 F with GIB due to migration of variceal coil and irritation of gastric mucosa continue follow up with GI medicine, continue ppi, continued follow up for pancreatic tail lesion seen on CT Total Time Spent: Greater than 30 minutes This includes examination of the patient, discharge planning, medication reconciliation, and communication with other providers. Discharge Instructions Please refer to the electronic Patient Visit Report (Discharge Instructions) for additional information.
== END 2017-06-19 12:10 | disposition home or self-care (01) ==
LOC: C.EDB 09:11 → C.2E 11:51 → ENRESERV 13:29
PROVIDERS: ADMIT Hospitalist; ATTEND Hospitalist
DX: I85.00 Esophageal varices without bleeding (principal); T85.9XXA Unspecified complication of internal prosthetic device, implant and graft, initial encounter; J45.909 Unspecified asthma, uncomplicated; X58.XXXA Exposure to other specified factors, initial encounter; Z79.899 Other long term (current) drug therapy

== ENCOUNTER 2017-07-17 12:47 | Emergency (ER) | payer OTHER ==
[~2017-07-17] VITALS: Ht 167.6 cm; Wt 63.5 kg
[~2017-07-17 12:47] MED LIST changes: -MONT1TAB3 PO; -OXYC-57 PO; +PANT40TA PO
[2017-07-17 12:52] VITALS: TEMP 36.8; Ht 167.6 cm; Wt 63.5 kg
[2017-07-17] MEDS ORDERED: ALBUT/IPRATROP 3MG/0.5MG NEB 3 ML VIAL INH STA (13:15)
--- NOTE | 2017-07-17 13:21 | EMERGENCY ROOM VISIT NOTE ---
History First contact with patient: 12:56 Chief Complaint: COUGH Stated Complaint: COUGHING UP BROWN MUCOUS W/ BLOOD, CHEST PAIN Nursing Triage Summary: productive cough, sorethroat. symptoms have been ongoing for months. feeling some shortness of breath. patient has been seen recently for other medical issues. 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 History of Present Illness The patient is a 22 year old female who presents to the Emergency Room with complaints of a chronic cough that has been going on for at least one month. The cough is productive with brown sputum. She also notes a small amount of blood in the sputum. She did feel slightly feverish yesterday when she woke up. She did not take her temperature. She has been trying her inhaler with no relief. She also reports some shortness of breath particularly when she wakes up. She is complaining of midsternal chest pain that is sharp and exacerbated with a cough and deep breathing. She does not take any control pills. She does not smoke. No recent long travel. Review of Systems 10 system review performed and negative unless noted in HPI or below Past Medical/Surgical History Medical Problems: (1) Asthma (2) GIB (gastrointestinal bleeding) (3) Hematemesis Social History Problems: (1) Uses control Family History Patient reports no known family medical history. Social History Smoking Status: Never Smoker Alcohol Use: occasionally Drug Use: none Marital Status: single Occupation Status: [employer] student Current/Historical Medications Scheduled Azithromycin (Zithromax Z-Wesley), 0 PO UD Pantoprazole (Protonix), 40 MG PO DAILY Prednisone (Prednisone), 50 MG PO DAILY Scheduled PRN Albuterol Hfa (Ventolin Hfa), 2-4 PUFFS INH Q4H PRN for SOB/Wheezing Physical Exam Vital Signs Date Time Temp Pulse Resp B/P (MAP) Pulse Ox O2 Delivery O2 Flow Rate FiO2 07/17/17 15:14 85 16 109/73 98 07/17/17 14:17 93 18 99 07/17/17 14:05 95/67 07/17/17 13:55 82 07/17/17 13:39 111/77 07/17/17 12:52 36.8 109 18 113/78 98 Room Air Physical Exam VITALS: Vitals are noted on the nurse's note and reviewed by myself. Vital signs stable. GENERAL: 22-year-old female, in no acute distress, nondiaphoretic, well- developed well-nourished. SKIN: The skin was without rashes, erythema, edema, or bruising. HEAD: Normocephalic atraumatic. EYES: Conjunctivae without injection, sclerae without icterus. Extraocular movements intact. NOSE: Patent, turbinates without inflammation or discharge. No sinus tenderness. MOUTH: Mucous membranes moist. Tonsils are not enlarged. Pharynx without erythema or exudate. Uvula midline. Airway patent. Tongue does not deviate. NECK: Supple without nuchal rigidity. Mild lymphadenopathy noted in the anterior cervical chain bilaterally. Cervical spine is nontender. No JVD. HEART: Regular rate and rhythm without murmurs gallops or rubs. LUNGS: Few rhonchorous breath sounds at the right base. No significant wheezing. No accessory muscle use. ABDOMEN: Positive bowel sounds x 4.Soft, nontender, without organomegaly. No guarding or rebound tenderness. MUSCULOSKELETAL: No muscle atrophy, erythema, or edema noted. Strength 5/5 throughout. NEURO: Patient was alert and oriented to person place and time. Normal sensation to touch. No focal neurological deficits. Medical Decision & Procedures ER Provider Diagnostic Interpretation: CXR 2 view CLINICAL HISTORY: Cough. Brown sputum. FINDINGS: PA and lateral chest radiographs are compared to study dated 09/20/2016. Correlation is made with abdominal CT dated 06/18/2017. The cardiomediastinal silhouette is unremarkable. The lungs and pleural spaces are clear. There is no pneumothorax. The bony thorax appears intact. There are coiled metallic structures present in left upper quadrant. IMPRESSION: 1. The lungs are clear. 2. There are correlated to structures identified in the left upper quadrant associated with stomach. These were also seen on the 06/18/[address] scan and reportedly represent embolization coils. Electronically signed by: Rome Noe M.D. 07/17/2017 2:06 PM Dictated Date/Time: 07/17/2017 2:00 PM Laboratory Results 07/17/17 13:30 Red Blood Count 5.00, Mean Corpuscular Volume 82.6, Mean Corpuscular Hemoglobin 27.2, Mean Corpuscular Hemoglobin Concent 32.9, Mean Platelet Volume 9.6, Neutrophils (%) (Auto) 59.0, Lymphocytes (%) (Auto) 22.8, Monocytes (%) (Auto) 10.2, Eosinophils (%) (Auto) 7.4, Basophils (%) (Auto) 0.5, Neutrophils # (Auto ) 6.26, Lymphocytes # (Auto) 2.41, Monocytes # (Auto) 1.08, Eosinophils # (Auto ) 0.78, Basophils # (Auto) 0.05 07/17/17 13:30 Test 07/17/17 13:30 07/17/17 14:15 White Blood Count 10.59 K/uL (4.8-10.8) Red Blood Count 5.00 M/uL (4.2-5.4) Hemoglobin 13.6 g/dL (12.0-16.0) Hematocrit 41.3 % (37-47) Mean Corpuscular Volume 82.6 fL (80-100) Mean Corpuscular Hemoglobin 27.2 pg (25-34) Mean Corpuscular Hemoglobin Concent 32.9 g/dl (32-36) Platelet Count 413 K/uL (130-400) Mean Platelet Volume 9.6 fL (7.4-10.4) Neutrophils (%) (Auto) 59.0 % Lymphocytes (%) (Auto) 22.8 % Monocytes (%) (Auto) 10.2 % Eosinophils (%) (Auto) 7.4 % Basophils (%) (Auto) 0.5 % Neutrophils # (Auto) 6.26 K/uL (1.4-6.5) Lymphocytes # (Auto) 2.41 K/uL (1.2-3.4) Monocytes # (Auto) 1.08 K/uL (0.11-0.59) Eosinophils # (Auto) 0.78 K/uL (0-0.5) Basophils # (Auto) 0.05 K/uL (0-0.2) RDW Standard Deviation 56.8 fL (36.4-46.3) RDW Coefficient of Variation 18.6 % (11.5-14.5) Immature Granulocyte % (Auto) 0.1 % Immature Granulocyte # (Auto) 0.01 K/uL (0.00-0.02) D-Dimer 420 ug/L FEU (0-500) Anion Gap 7.0 mmol/L (3-11) Est Creatinine Clear Calc Drug Dose 121.7 ml/min Estimated GFR () 145.2 Estimated GFR (Non- 125.3 BUN/Creatinine Ratio 14.4 (10-20) Calcium Level 8.7 mg/dl (8.5-10.1) Troponin I < 0.015 ng/ml (0-0.045) Influenza Type A Antigen Neg for Influ A (NEG) Influenza Type B Antigen Neg for Influ B (NEG) Medications Administered Medications (Trade) Dose Ordered Sig/Cheikh Route Start Time Stop Time Status Last Admin Dose Admin Albuterol/ Ipratropium (Duoneb) 3 ml Q4 STAT INH 07/17/17 13:15 07/17/17 13:18 DC 07/17/17 14:06 3 ML Prednisone (PredniSONE TAB) 60 mg NOW STAT PO 07/17/17 14:59 07/17/17 15:00 DC 07/17/17 15:12 60 MG ECG Indication: chest pain Rate (beats per minute): 88 Rhythm: normal sinus Comparison ECG Date: normal sinus rhythm has replaced sinus arrhythmia ED Course Patient was seen and examined Vital signs including blood pressure were reviewed medications list was verified with patient Labs were obtained, and a saline lock was established An EKG was performed. She was put on a monitor. She was given a DuoNeb treatment Imaging was performed The patient was reassessed and resting comfortably. We discussed the results of her workup. She voiced understanding. She was given 1 dose of prednisone 60 mg I reviewed discharge instructions the patient. They voiced understanding and had no further questions. Medical Decision Differential diagnosis: Bronchitis, pneumonia, strep pharyngitis, viral pharyngitis, influenza Acute myocardial infarction, pneumothorax, pulmonary embolus, pericarditis, electrolyte imbalance This patient is a 22-year-old female that presents to the emergency department with complaints of cough, shortness of breath and chest pain that have been ongoing for approximately 1 month. She had a few rhonchorous breath sounds at the right base. Otherwise, her exam was unremarkable. She is afebrile. She does have a complicated past medical history of a portal vein thrombosis and GI bleeding. Her chest x-ray is negative for pneumonia. There is no leukocytosis. Cardiac enzymes within normal limits. D-dimer is also negative. I do not suspect acute cardiac ischemia or pulmonary embolus. She likely has chronic bronchitis given the length of her symptoms. The patient will be treated with steroids and Zithromax. She will take her Xopenex inhaler at home. She was instructed to follow-up with her primary care physician or [facility] services in the next 5 days if there is no improvement. She will return to the ER with worsening symptoms. This chart was completed in part utilizing [employer] Speech Voice Recognition software. Attempts were made to minimize the grammatical errors, random word insertions, pronoun errors and incomplete sentences. Any formal questions or concerns about the content, text or information contained within the body of this dictation should be directly addressed to the provider for clarification. Medication Reconcilliation Current Medication List: was personally reviewed by me Blood Pressure Screening Patient's blood pressure: Normal blood pressure Impression Primary Impression: Bronchitis Departure Information Dispostion Home / Self-Care Condition GOOD Prescriptions Azithromycin (ZITHROMAX Z-WESLEY) 250 Mg Tab 0 PO UD, #1 PKT 2 TABS DAY 1, THEN 1 TAB DAILY FOR 4 DAYS Prov: Divya Gray PA-C 07/17/17 Prednisone (Prednisone) 50 Mg Tab 50 MG PO DAILY for 4 Days, #4 TAB Prov: Divya Gray PA-C 07/17/17 Referrals Teja Alfonso M.D. (PCP) Patient Instructions My [facility] Additional Instructions You were evaluated in the emergency department with cough, chest pain and difficulty breathing. Given the length of your symptoms, it is likely that this is chronic bronchitis. Please take your Xopenex inhaler 2 puffs every 4 hours for the next 3 days. Please finish the entire course of prednisone. Please take the Z-Wesley as prescribed. If your symptoms persist, please see [facility] services or your primary care physician in the next 5 days. If your symptoms worsen, please return to the emergency department.
[2017-07-17 13:49] LABS: BASO % 0.5 %; BASO ABS # 0.05 K/uL (0-0.2); COMPLETE YES; EOS % 7.4 %; HEMATOCRIT 41.3 % (37-47); IG% 0.1 %; LYMPH % 22.8 %; LYMPH ABS # 2.41 K/uL (1.2-3.4); MEAN CELL VOLUME 82.6 fL (80-100); MEAN CORPUSCULAR HEMOGLOBIN 27.2 pg (25-34); MEAN CORPUSCULAR HGB CONC 32.9 g/dl (32-36); MEAN PLATELET VOLUME 9.6 fL (7.4-10.4); MONO % 10.2 %; PLATELET COUNT 413 K/uL (130-400); WHITE BLOOD COUNT 10.59 K/uL (4.8-10.8)
--- NOTE | 2017-07-17 14:07 | DIAGNOSTIC IMAGING REPORT ---
TWO VIEW CHEST CLINICAL HISTORY: Cough. Brown sputum. FINDINGS: PA and lateral chest radiographs are compared to study dated 09/20/2016. Correlation is made with abdominal CT dated 06/18/2017. The cardiomediastinal silhouette is unremarkable. The lungs and pleural spaces are clear. There is no pneumothorax. The bony thorax appears intact. There are coiled metallic structures present in left upper quadrant. IMPRESSION: 1. The lungs are clear. 2. There are correlated to structures identified in the left upper quadrant associated with stomach. These were also seen on the 06/18/[address] scan and reportedly represent embolization coils. Electronically signed by: Rome Neo M.D. 07/17/2017 2:06 PM Dictated Date/Time: 07/17/2017 2:00 PM
[2017-07-17 14:10] LABS: BLOOD UREA NITROGEN 10 mg/dl (7-18); BUN/CREATININE RATIO 14.4 (10-20); CALCIUM 8.7 mg/dl (8.5-10.1); CARBON DIOXIDE 24 mmol/L (21-32); CHLORIDE 109 mmol/L (98-107); CREATININE 0.69 mg/dl (0.60-1.20); GLUCOSE 81 mg/dl (70-99); POTASSIUM 3.6 mmol/L (3.5-5.1); SODIUM 140 mmol/L (136-145)
[2017-07-17] MEDS ORDERED: PRED50TA PO (15:05)
[2017-07-17] MEDS ORDERED: AZITTAB PO (15:05)
[2017-07-17 15:14] VITALS: BP 109/73; PULSE 85; O2SAT 98
== END 2017-07-17 15:13 | disposition home or self-care (01) ==
LOC: C.EDB 12:49
DX: J40 Bronchitis, not specified as acute or chronic (principal); J45.909 Unspecified asthma, uncomplicated; Z79.899 Other long term (current) drug therapy; Z87.19 Personal history of other diseases of the digestive system

== ENCOUNTER → 2017-10-21 | Outpatient (CLI) | payer OTHER ==
[~2017-10-21] MED LIST changes: -FLUT230A INH
== END | disposition home or self-care (01) ==
LOC: C.LABSPEC 17:29
PROVIDERS: ATTEND Physician Assistant
DX: Z11.3 Encounter for screening for infections with a predominantly sexual mode of transmission (principal); Z11.8 Encounter for screening for other infectious and parasitic diseases

== ENCOUNTER → 2017-11-23 | Day surgery (SDC) | payer OTHER ==
[2017-10-28 10:51] VITALS: Ht 167.6 cm; Wt 63.6 kg
[~2017-11-23] VITALS: Ht 167.6 cm; Wt 63.6 kg
[~2017-11-23] MED LIST changes: +ATROPINE SULFATE 0.1 MG/ML 5ML SYR IV PRN; +BUPIVACAINE 0.5 % 5 MG/1 ML MPF 30ML VIAL ONE; +BUPIVACAINE/EPINEPHRINE 0.5% MPF 1:200,000 30 ML VIAL ONE; +CEFAZOLIN 2000MG IV PUSH 15 ML IV SCH; +DEXAMETHASONE SOD INJ 4 MG/ML VIAL ONE; +EpHEDrine SULFATE INJ 50 MG/ML AMP IV PRN; +FENTANYL CITRATE INJ 50 MCG/1 ML 2 ML VIAL IV PRN; +FENTANYL CITRATE INJ 50 MCG/1 ML 2 ML VIAL ONE; +FLUMAZENIL 0.1 MG/1 ML 10 ML VIAL IV PRN; +HEPARIN SOD 5000 UNIT/0.5 ML CARP SQ SCH; +HYDR-5688 PO; +HYDROCODONE/ACETAMIN 5/325MG TAB PO PRN; +LACTATED RINGER'S 1000ML 1,000 ML IV SCH; +LIDOCAINE HCL 2% 2 ML VIAL (20MG/ML) ONE; +MIDAZOLAM HCL 1 MG/ML 2ML VIAL ONE; +NALOXONE HCL 0.4 MG/1 ML VIAL/CARP IV PRN; +ONDANSETRON INJ 2 MG/ML 2 ML VIAL IV PRN; +ONDANSETRON INJ 2 MG/ML 2 ML VIAL ONE; +PANT1TAB3 PO; -PANT40TA PO; +PROMETHAZINE HCL INJ 12.5 MG in SODIUM CHLORIDE 0.9% 50ML 50 ML IV PRN; +PROPOFOL IV EMULSION 10 MG/ML 20 ML VIAL IV ONE; +SODIUM CHLORIDE 0.9% 1000ML 1,000 ML IV SCH
--- NOTE | 2017-11-23 07:00 | Discharge Instructions-SurgCtr ---
Discharge Instructions Date of Service Nov 23, 2017. Visit Reason for Visit: Recurrent Incisional Hernia Discharge Discharge Diagnosis / Problem: incisional hernia Discharge Goals Goal(s): Decrease discomfort, Improve function, Prevent Disease Progression Activity Recommendations Activity Limitations: as noted below Lifting Limitations: no more than 10 pounds, until after follow-up appointment Exercise/Sports Limitations: until after follow-up appointment May Resume Sexual Activity: after follow-up appointment Shower/Bathe: tomorrow Anesthesia . Post Anesthesia Instructions: If you have had General Anesthesia or IV Sedation: * Do not drive today. * Resume driving when surgeon permits. * Do not make important decisions or sign legal documents today. * Call surgeon for: 1. Temperature elevations greater than 101 degrees F. 2. Uncontrollable pain. 3. Excessive bleeding. 4. Persistent nausea and vomiting. 5. Medication intolerance (nausea, vomiting or rash). * For nausea and vomiting use only clear liquids such as: tea, soda, bouillon until nausea subsides, then gradually increase diet as tolerated. * If you have any concerns or questions, call your surgeon's office. If physician is unavailable and it is an emergency, call 911 or go to the nearest emergency room. . Instructions / Follow-Up Instructions / Follow-Up follow up with dr. french in 1-2 weeks Diet Recommendations Home Diet: resume previous diet Procedures Procedures Performed: incisional hernia repair Pending Studies Studies pending at discharge: no Medical Emergencies . Who to Call and When: Medical Emergencies: If at any time you feel your situation is an emergency, please call 911 immediately. . Non-Emergent Contact Non-Emergency issues call your: Primary Care Provider, Surgeon Call Non-Emergent contact if: temperature is above 101, wound has increased drainage, wound has increased redness, wound has increased pain . . "Provider Documentation" section prepared by Austen French. .
--- NOTE | 2017-11-23 07:46 | [facility] Post Operative Brief Note ---
Immediate Operative Summary Operative Date Nov 23, 2017. Pre-Operative Diagnosis Recurrent incisional hernia Post-Operative Diagnosis same with small seroma pocket Procedure(s) Performed Incisional Open Hernia Repair, Recurrent; drainage/obliteration of seroma cavity Surgeon Dr. French Horticulture Superintendent Surgeon(s) Arianna Tyler, MS3 Estimated Blood Loss 5ml Findings See Below small hernia with associated seroma Specimens none Anesthesia Type General Complication(s) none
--- NOTE | 2017-11-23 08:03 | [facility] Operative Report ---
Operative Report Operative Date Nov 23, 2017. Pre-Operative Diagnosis Recurrent incisional hernia Post-Operative Diagnosis same with small seroma pocket Procedure(s) Performed Incisional Open Hernia Repair, Recurrent; drainage/obliteration of seroma cavity Surgeon Dr. French Dough Machine Operator Surgeon(s) Arianna Tyler, MS3 Estimated Blood Loss 5ml Findings small hernia with associated seroma Specimens none Anesthesia Type General Complication(s) none Description of Procedure After informed consent was obtained the patient was taken to the operating room and placed in supine position. After successful placement of the laryngeal mask airway the abdomen was sterilely prepped and draped in usual fashion. I made a small incision with a 15 blade scalpel through her old scar over top of the visible abnormality. We carried this down through the soft tissue using electrocautery. We readily encountered a small seroma pocket probably 2 cm x 2 cm and evacuated the fluid. Beneath this was a small 1 cm recurrent incisional hernia. I excised the hernia sac. We palpated the incision as far as we could through our small incision and I felt no other gross abnormalities. We excised the epithelialized seroma pocket using electrocautery to rough up the edges to hopefully allow this to heal shut. Once we did this we then thoroughly irrigated the wound. I closed the hernia with 0 Ethibond in simple interrupted fashion. I irrigated a final time. I then closed the wound in multiple layers using 2-0 Vicryl for deep layers 3-0 Vicryl for mid layers and 4-0 Monocryl for skin. Marcaine with epinephrine was injected around the surgical site for postoperative analgesia and skin glue used as a dressing. The patient was awaken extubated and transferred to recovery in stable condition. I attest to the content of the Intraoperative Record and any orders documented therein. Any exceptions are noted below.
[2017-11-23 09:01] VITALS: TEMP 36.7
--- NOTE | 2017-11-23 09:02 | Anesthesia Progress Nt - [facility] ---
Anesthesia Post Op Note Date & Time Nov 23, 2017 at 09:02 Vital Signs Pain Intensity: 4 Vital Signs Past 12 Hours Date Time Temp Pulse Resp B/P (MAP) Pulse Ox O2 Delivery O2 Flow Rate FiO2 11/23/17 08:51 109/85 11/23/17 08:49 77 18 94 11/23/17 08:49 74 18 11/23/17 08:48 83 21 11/23/17 08:48 83 21 93/43 94 11/23/17 08:47 37.3 79 20 93/43 94 Room Air 11/23/17 08:43 82 23 11/23/17 08:43 81 23 90 11/23/17 08:41 108/66 11/23/17 08:38 74 13 11/23/17 08:38 75 13 94 11/23/17 08:36 116/66 11/23/17 08:33 76 17 11/23/17 08:33 81 17 98 11/23/17 08:32 73 15 11/23/17 08:32 70 15 98 11/23/17 08:31 109/53 11/23/17 08:27 77 16 98 11/23/17 08:27 76 16 11/23/17 08:26 109/63 11/23/17 08:24 91 18 11/23/17 08:24 93 18 96 11/23/17 08:21 107/61 11/23/17 08:19 21 11/23/17 08:19 89 21 11/23/17 08:16 92/50 11/23/17 08:14 76 19 11/23/17 08:14 77 19 96 11/23/17 08:11 93/51 11/23/17 08:09 79 20 11/23/17 08:09 79 20 95 11/23/17 08:06 94/47 11/23/17 08:04 81 13 95 11/23/17 08:04 81 13 11/23/17 08:01 92/48 11/23/17 07:59 81 13 11/23/17 07:59 81 13 96 11/23/17 07:56 94/42 11/23/17 07:54 85 13 11/23/17 07:54 85 13 94 11/23/17 07:51 90/40 11/23/17 07:50 36.6 86 12 90/46 96 Mask 10 11/23/17 06:42 36.8 81 20 112/75 (87) 97 Room Air Notes Mental Status: alert / awake / arousable, participated in evaluation Pt Amnestic to Procedure: Yes Nausea / Vomiting: adequately controlled Pain: adequately controlled Airway Patency, RR, SpO2: stable & adequate BP & HR: stable & adequate Hydration State: stable & adequate Anesthetic Complications: no major complications apparent
[2017-11-23 09:25] VITALS: BP 108/74; PULSE 82; O2SAT 95
== END | disposition home or self-care (01) ==
LOC: X.SURG 06:22
PROVIDERS: ATTEND Surgery
DX: K43.2 Incisional hernia without obstruction or gangrene (principal); Z91.041 Radiographic dye allergy status; J45.909 Unspecified asthma, uncomplicated; Z98.890 Other specified postprocedural states; Z90.89 Acquired absence of other organs

== ENCOUNTER → 2018-02-03 | Outpatient (CLI) | payer OTHER ==
[~2018-02-03] MED LIST changes: -ATROPINE SULFATE 0.1 MG/ML 5ML SYR IV PRN; -BUPIVACAINE 0.5 % 5 MG/1 ML MPF 30ML VIAL ONE; -BUPIVACAINE/EPINEPHRINE 0.5% MPF 1:200,000 30 ML VIAL ONE; -CEFAZOLIN 2000MG IV PUSH 15 ML IV SCH; -DEXAMETHASONE SOD INJ 4 MG/ML VIAL ONE; -EpHEDrine SULFATE INJ 50 MG/ML AMP IV PRN; -FENTANYL CITRATE INJ 50 MCG/1 ML 2 ML VIAL IV PRN; -FENTANYL CITRATE INJ 50 MCG/1 ML 2 ML VIAL ONE; -FLUMAZENIL 0.1 MG/1 ML 10 ML VIAL IV PRN; -HEPARIN SOD 5000 UNIT/0.5 ML CARP SQ SCH; -HYDROCODONE/ACETAMIN 5/325MG TAB PO PRN; -LACTATED RINGER'S 1000ML 1,000 ML IV SCH; -LIDOCAINE HCL 2% 2 ML VIAL (20MG/ML) ONE; -MIDAZOLAM HCL 1 MG/ML 2ML VIAL ONE; -NALOXONE HCL 0.4 MG/1 ML VIAL/CARP IV PRN; -ONDANSETRON INJ 2 MG/ML 2 ML VIAL IV PRN; -ONDANSETRON INJ 2 MG/ML 2 ML VIAL ONE; -PROMETHAZINE HCL INJ 12.5 MG in SODIUM CHLORIDE 0.9% 50ML 50 ML IV PRN; -PROPOFOL IV EMULSION 10 MG/ML 20 ML VIAL IV ONE; -SODIUM CHLORIDE 0.9% 1000ML 1,000 ML IV SCH
== END | disposition home or self-care (01) ==
LOC: C.LABSPEC 17:36
PROVIDERS: ATTEND Physician Assistant
DX: Z30.430 Encounter for insertion of intrauterine contraceptive device (principal)

== ENCOUNTER 2019-01-06 20:24 | Inpatient (IN) ==
[2019-01-06] MEDS ORDERED: SODIUM CHLORIDE 0.9% 250 ML IV PRN (20:35)
[2019-01-06] MEDS ORDERED: SODIUM CHLORIDE 0.9% 1000ML 1,000 ML IV STA (20:35)
[2019-01-06] MEDS ORDERED: FAMOTIDINE 20MG/5ML IV PUSH IV STA (20:52)
[2019-01-06 20:53] LABS: Basophils # (auto) 0.05 K/uL (0-0.2); Basophils % (auto) 0.5 %; Eosinophils # (auto) 0.49 K/uL (0-0.5); Eosinophils % (auto) 5.1 %; Hematocrit (blood only) 45.2 % (37-47); Hemoglobin 15.8 g/dL (12.0-16.0); Immature Granulocytes # (auto) 0.02 K/uL (0.00-0.02); Immature Granulocytes % (auto) 0.2 %; Lymphocytes # (auto) 4.41 K/uL (1.2-3.4); Lymphocytes % (auto) 46.1 %; Mean Corpuscular Volume 92.8 fL (80-100); Mean Platelet Volume 10.4 fL (7.4-10.4); Monocytes % (auto) 8.4 %; Neutrophils % (auto) 39.7 %; Platelet Count 252 K/uL (130-400); RDW Standard Deviation 51.1 fL (36.4-46.3); Red Blood Count 4.87 M/uL (4.2-5.4); White Blood Count 9.57 K/uL (4.8-10.8)
[2019-01-06] MEDS ORDERED: OCTREOTIDE ACETATE 500 MCG in 0.9 % SODIUM CHLORIDE 100 ML IV STA (20:56)
[2019-01-06] MEDS ORDERED: PANTOprazole 80 MG in DEXTROSE 5% 100 ML IV ONE (21:00)
[2019-01-06 21:02] LABS: INR 1.1 (0.9-1.1); Partial Thromboplastin Ratio 0.9; Partial Thromboplastin Time 23.7 Seconds (21.0-31.0); Prothrombin Time 11.5 Seconds (9.0-12.0)
[2019-01-06 21:12] LABS: Albumin Level 4.2 gm/dl (3.4-5.0); BUN Creatinine Ratio 17.5 (10-20); Calcium 9.2 mg/dl (8.5-10.1); Creatinine Clr Calc Pharmacy 102.8 ml/min; Est GFR (African American) 120.3; Est GFR (Non-African American) 103.8; Potassium 3.4 mmol/L (3.5-5.1)
[2019-01-06 21:13] LABS: Pregnancy Test, Serum Negative (Negative)
[2019-01-06] MEDS ORDERED: ONDANSETRON INJ 2 MG/ML 2 ML VIAL IV STA (21:13)
[2019-01-06 21:15] LABS: Albumin Globulin Ratio 1.1 (0.9-2); Globulin 3.7 gm/dl (2.5-4.0); Total Protein 7.9 gm/dl (6.4-8.2)
[2019-01-06] MEDS: PANTOprazole 40 MG in DEXTROSE 5% 100 ML IV SCH (21:40)
--- NOTE | 2019-01-06 23:19 | History & Physical Report ---
Date of Service January 06, 2019 Assessment & Plan (1) Upper GI bleed: Patient with complicated history of portal vein thrombosis, esophageal varices and gastric ulcers presenting with hematemesis. Presently hemodynamically stable, H/H 15.8/45.2. Last episode of hematemesis at 22:00 -Admit to PCU -Protonix bolus and drip -Octreotide drip -CBC q 8 hours - transfuse for active bleeding, acute drop in Hg, symptomatic anemia or Hg <7 -Keep NPO -GI consultation - appreciate assistance with this case. Plan for EGD in AM -Maintain two large bore PIVs Present on Admission?: Yes (2) Gastropathy: As above. Could be source of UGIB -Protonix gtt as above -NPO -GI evaluation and EGD in AM Present on Admission?: Yes (3) Esophageal varices: Patient with history of portal vein thrombosis, esophageal varices -Octreotide gtt as above -Trend H/H Present on Admission?: Yes (4) Asthma: Stable. No SOB, cough or wheeze -Continue to monitor F/E/N- Heplock. Patient received IVF in ER. Monitor electrolytes and replete as needed. NPO for now Ppx -Patient is low risk for DVT Code - FULL Dispo - PCU History of Present Illness Chief Complaint: hematemesis Primary Care Provider: Teja Alfonso MD Patient is a 23yo female with history of portal vein thrombosis resulting in massive variceal bleed in 2016. At that time she presented with large volume hematemesis. She became hemodynamically unstable, had EGD and Bharat tube placement. She was subsequently transferred to [facility] [place] where coiling of her gastric varices was attempted. She was then transferred to [facility] where she underwent splenectomy. She has had a few episodes of small volume hematemesis since the initial event. She follows with Dr. Serna. Has frequent EGDs. Patient presents today with hematemesis. She was eating today when she felt a sharp pain in her stomach and epigastric area. The pain increased. Then she had a dark colored bowel movement after which she developed nausea with 5-7 episodes of hematemesis. She reports small volume, bright to dark red blood, no coffee ground material. She denies clots. Denies CP/SOB/dizziness. Presently without nausea but feels that her stomach is full and bloated. Her last episode of hematemesis was tonight at 22:00, last BM tonight at 20:00. Patient denies EtOh use. Infrequent use of NSAIDS ER Course: Pepcid, Octreotide gtt, Protonix gtt, Zofran, NSS Allergies Allergy/AdvReac Type Severity Reaction Status Date / Time Iodinated Contrast- Oral and Allergy Intermediate hives Verified 01/06/19 21:10 IV Dye Home Medications Home Medications Medication Instructions Recorded Confirmed Type albuterol sulfate 2 - 4 puff INHALATION Q4H PRN 07/13/18 01/06/19 History levonorgestrel 1 ea INTRAUTERINE DIRECTED 01/06/19 01/06/19 History Past Med/Surg History Medical History Gastropathy Esophageal varices Asthma Esophagovariceal bleed (Acute) GIB (gastrointestinal bleeding) Surgical History History of splenectomy History of incisional hernia repair Family History Other Family history non-contributory Social History Feels Safe at Home: Yes Smoking Status: Never smoker Hx Alcohol Use: No Hx Substance Use: No Review of Systems All systems reviewed & are unremarkable except as noted in HPI & below Physical Exam Vital Signs (Past 24 Hours): Last Vital Signs Temp 36.8 C 01/06/19 20:27 Pulse 92 H 01/06/19 23:00 Resp 20 01/06/19 23:00 BP 123/92 01/06/19 20:42 Pulse Ox 93 01/06/19 23:00 Physical Exam: General: patient resting comfortably, NAD, non-toxic in appearance, AA&O x 4 Skin: warm, dry, intact, no rashes or lesions, no pallor HEENT: NC/AT, PERRL, EOMI, anicteric sclera, conjunctiva without injection, external ear normal to inspection and nontender, nares patent, moist mucus membranes, dentition intact, no oropharyngeal lesions, neck supple, trachea midline, no LAD, no thyromegaly, no JVD Heart: +S1/S2, regular, no m/r/g Lungs: equal air entry bilaterally, no rales/rhonchi/wheezes Abd: +BS hyperactive, soft, ND, no masses/organomegaly/ascites, tenderness in the epigastric region Ext: warm, 2+ pulses in UE/LE bilaterally, no clubbing/cyanosis or edema Neuro: nonfocal, patient AA&O x 4, speech intact, no facial droop, moving all extremities on command with equal strength 5/5 Results & Data Diagnostic Findings EGD 10/07/17: Non-bleeding grade I and small (< 5 mm) esophageal varices. Non- bleeding gastric ulcer with no stigmata of bleeding at site of prior coils. There were two small residual coils which could not be remove with the raprtor grasper Normal examined duodenum EGD 09/15/17: Non-bleeding grade II esophageal varices. Completely eradicated. Banded. Non-bleeding gastric ulcer with no stigmata of bleeding at the site of prior gastric varices emoblization. Two small coils eroding into the stomach since last examination EGD/EUS 08/24/17: Large (> 5 mm) esophageal varices with high risk stigmata. Completely eradicated. Banded. Coils were found in the stomach, removed with raptor forceps and jacobo scissors. Clip placed. Coils were found in the second portion of the duodenum, removed with raptor forceps. Twice daily PPI to decrease size of post-banding ulcers Repeat upper endoscopy in 4 weeks to evaluate need for further band ligation. Varices were visualized endosonographically in the lower third of the esophagus. Normal pancreas, bile duct and gallbladder Hypoechoic lesion adjacent to pancreatic tail has the endosonographic apperance of an accessory spleen. The other diagnostic possibility is a walled off postsurgical collection EGD 06/18/17: Small (< 5 mm) esophageal varices. A vascular coil was found extruding through the wall of the proximal stomach (see above and photos). Normal examined duodenum.= No specimens collected. EGD 03/31/17: Grade I esophageal varices. Normal stomach. Normal examined duodenum. No specimens collected. EGD 09/20/16: No esophageal varices. No source of bleeding in esophagus, body, antrum, and duodenum. Large clot in fundus. Active bleeding that seems to be originating from the fundus. Because of the pt's history of OCP use, uls suggesting PVT with cav transformation, I suspect that she has a gastric varic eal bleed. Code Status & VTE Plan Code Status FULL Critical Care Time Critical Care Time: No
[2019-01-07] MEDS ORDERED: ONDANSETRON INJ 2 MG/ML 2 ML VIAL IV PRN (01:16)
[2019-01-07 01:59] LABS: Basophils # (auto) 0.05 K/uL (0-0.2); Basophils % (auto) 0.6 %; Eosinophils # (auto) 0.42 K/uL (0-0.5); Eosinophils % (auto) 4.9 %; Hematocrit (blood only) 38.8 % (37-47); Hemoglobin 13.3 g/dL (12.0-16.0); Immature Granulocytes # (auto) 0.02 K/uL (0.00-0.02); Immature Granulocytes % (auto) 0.2 %; Lymphocytes # (auto) 3.35 K/uL (1.2-3.4); Lymphocytes % (auto) 39.1 %; Mean Corpuscular Hgb Conc 34.3 g/dL (32-36); Mean Corpuscular Volume 94.2 fL (80-100); Monocytes # (auto) 0.62 K/uL (0.11-0.59); Monocytes % (auto) 7.2 %; Platelet Count 230 K/uL (130-400); RDW Coefficient of Variation 14.9 % (11.5-14.5); RDW Standard Deviation 50.9 fL (36.4-46.3); Red Blood Count 4.12 M/uL (4.2-5.4); White Blood Count 8.56 K/uL (4.8-10.8)
[2019-01-07 02:21] LABS: BUN Creatinine Ratio 17.8 (10-20); Calcium 8.3 mg/dl (8.5-10.1); Creatinine Clr Calc Pharmacy 109.6 ml/min; Est GFR (Non-African American) 112.1; Potassium 4.1 mmol/L (3.5-5.1)
[2019-01-07] MEDS: PANTOprazole 40 MG in DEXTROSE 5% 100 ML IV SCH ×5 (03:07→21:27)
--- NOTE | 2019-01-07 03:26 | Emergency Department Note ---
Entered by Lu Jay acting as a scribe for Rashad Easley MD ED Provider Note CHIEF COMPLAINT: Vomiting HISTORY OF PRESENT ILLNESS: The patient is a 23 year old female presenting to the Emergency Department complaining of persistent vomiting starting prior to arrival. The patient reports that she has blood in her emesis and is nauseous. She states that she has experienced an episode of black stool WAITER/WAITRESS TAKE OUT. She explains that she has esophageal varices and that she has experienced these symptoms before. She notes that she has gastropathy and has had a blood clot before. She adds that she last ate food 1 hour ago. The patient reports that she has not recently had any blood transfusions but that she has had them in the past. She states that she sees Dr. Daphne CAMPBELL. She notes that she is not currently taking any blood thinners. She denies taking any medications for her symptoms WAITER/WAITRESS TAKE OUT. Pt denies LOC, headache, fevers, chills, diaphoresis, visual changes, neck pain, chest pain, breathing difficulties, abdominal pain, back pain, hematochezia, urinary symptoms, numbness, weakness, lymphadenopathy, rash, or other complaints. REVIEW OF SYSTEMS: See HPI for pertinent positives and negatives. A total of ten systems were reviewed and were otherwise negative. PMHx/PSHx: Asthma, GIB, Esophageal varices, Gastropathy. Splenectomy. SOCIAL HISTORY: Patient lives at home. Never a smoker. PHYSICAL EXAM: GENERAL: Awake, alert, well-appearing, in no distress HENT: Normocephalic, atraumatic. Oropharynx unremarkable. EYES: Normal conjunctiva. Sclera non-icteric. NECK: Inspection normal. Non-tender. Supple. No nuchal rigidity. FROM. No masses. RESPIRATORY: Clear to auscultation. No wheezes. No rales. Normal respiratory effort. CARDIAC: Normal rate. Normal rhythm. No murmurs. No rubs. Extremities warm and well perfused. Pulses equal. No JVD. GI: Soft, non-distended. Mild epigastric tenderness. No rebound or guarding. No masses. RECTAL: Deferred. MUSCULOSKELETAL: Atraumatic. Chest examination reveals no tenderness. The back is symmetrical on inspection without obvious abnormality. There is no CVA tenderness to palpation. No joint edema. LOWER EXTREMITIES: Calves are equal size bilaterally and non-tender. No edema. No discoloration. NEURO: Normal sensorium. No sensory or motor deficits noted. SKIN: No rash or jaundice noted. EMERGENCY DEPARTMENT COURSE: 2053: The patient was evaluated in room C1B, and a complete history and physical examination were performed. 2106: I reviewed the patient's case with Dr. Brian CAMPBELL who agreed with IV drips and close monitoring. He will scope her in the morning. 2221: I updated the patient and her mother at this time. We discussed the patients disposition. 2234: I reviewed the patient's case with Dr. Martin MARIE Hospitalist. She will evaluate the patient for further management. MEDICAL DECISION MAKING: Prior records/ancillary studies reviewed. Prior visits were reviewed. The patient was transferred for her last 3 GI bleeds. Triage Nursing notes reviewed and agree them. The patient's history was concerning for possible gastrointestinal bleeding. Differential diagnosis: Etiologies such as variceal bleed, gastritis, AVM, coagulopathy, colitis, inflammatory bowel disease, malignancy,Soo-Pillai tear, esophagitis, peptic ulcer disease,epistaxis, fissure, hemorrhoids, as well as others were entertained. Physical exam: As above. ER treatment provided: IV saline IV Protonix, bolus and drip IV Pepcid IV octreotide IV Zofran On reassessment the patient felt better. Diagnostics interpreted by me: The labs revealed an unremarkable CBC and chemistry panel. Consultation: Consultation was made with the [facility]. As the patient is hemodynamically stable and doing well with the above treatment having the patient admitted here was recommended. The patient will have endoscopy first thing in the morning. Patient feels comfortable with this plan as does her mother. A consultation was placed with the hospitalist. The case was discussed and diagnostics were reviewed. The patient was evaluated in the ER for further treatment. IMPRESSION: Upper GI Bleed PLAN: Being Evaluated by Hospitalist The scribe's documentation has been prepared under my direction and personally reviewed by me in its entirety. I confirm that the note above accurately reflects all work, treatment, procedures, and medical decision making performed by me. Impression & Plan Upper GI bleed Past Med/Surg History Medical History Gastropathy Esophageal varices Asthma Esophagovariceal bleed (Acute) GIB (gastrointestinal bleeding) Surgical History History of splenectomy History of incisional hernia repair Social History Preferred Language: [place] Communication Ability: Effective Color Matcher Required: No Beliefs That Will Affect Care: None Current Living Situation: Parent Other Information That Helps Us Care for You: No Feels Safe at Home: Yes Smoking Status: Never smoker Hx Alcohol Use: No Hx Substance Use: No Results & Data Vital Signs Vital Signs - 24 hr 01/06/19 20:27 01/06/19 20:42 01/06/19 20:47 Temperature 36.8 C Temperature Source Oral Sepsis Recent Fever Within 48 Hours No Sepsis Action Taken by Nursing No Action Required Pulse Rate 111 H 99 H 102 H Pulse Rate from SpO2 Sensor 100 H 101 H Respiratory Rate 18 22 26 H Respiratory Effort / Characteristics Non-Labored Respiratory Depth Normal Respiratory Pattern Blood Pressure 129/82 123/92 Blood Pressure Mean 97 102 Pulse Oximetry 98 95 98 Oxygen Delivery Method Room Air 01/06/19 20:48 01/06/19 21:00 01/06/19 21:15 Temperature Temperature Source Sepsis Recent Fever Within 48 Hours Sepsis Action Taken by Nursing Pulse Rate 103 H 97 H Pulse Rate from SpO2 Sensor 101 H 96 H Respiratory Rate 19 19 Respiratory Effort / Characteristics Respiratory Depth Respiratory Pattern Blood Pressure Blood Pressure Mean Pulse Oximetry 97 97 97 Oxygen Delivery Method Room Air Room Air Room Air 01/06/19 21:30 01/06/19 21:45 01/06/19 22:00 Temperature Temperature Source Sepsis Recent Fever Within 48 Hours Sepsis Action Taken by Nursing Pulse Rate 87 85 85 Pulse Rate from SpO2 Sensor 88 85 86 Respiratory Rate 19 18 17 Respiratory Effort / Characteristics Respiratory Depth Respiratory Pattern Blood Pressure Blood Pressure Mean Pulse Oximetry 96 93 Oxygen Delivery Method Room Air Room Air 01/06/19 22:15 01/06/19 22:30 01/06/19 22:45 Temperature Temperature Source Sepsis Recent Fever Within 48 Hours Sepsis Action Taken by Nursing Pulse Rate 87 88 96 H Pulse Rate from SpO2 Sensor 87 89 95 H Respiratory Rate 17 18 20 Respiratory Effort / Characteristics Respiratory Depth Respiratory Pattern Blood Pressure Blood Pressure Mean Pulse Oximetry 93 92 94 Oxygen Delivery Method Room Air Room Air Room Air 01/06/19 23:00 01/06/19 23:07 01/06/19 23:15 Temperature Temperature Source Sepsis Recent Fever Within 48 Hours Sepsis Action Taken by Nursing Pulse Rate 92 H 91 H 96 H Pulse Rate from SpO2 Sensor 92 H 91 H 95 H Respiratory Rate 20 16 22 Respiratory Effort / Characteristics Respiratory Depth Respiratory Pattern Blood Pressure 114/75 Blood Pressure Mean 88 Pulse Oximetry 93 94 Oxygen Delivery Method Room Air Room Air 01/06/19 23:30 01/06/19 23:45 01/07/19 00:00 Temperature Temperature Source Sepsis Recent Fever Within 48 Hours Sepsis Action Taken by Nursing Pulse Rate 96 H 98 H 89 Pulse Rate from SpO2 Sensor 97 H 98 H 89 Respiratory Rate 20 19 21 Respiratory Effort / Characteristics Respiratory Depth Respiratory Pattern Blood Pressure 103/55 L Blood Pressure Mean 71 Pulse Oximetry 92 92 93 Oxygen Delivery Method 01/07/19 00:01 01/07/19 00:15 01/07/19 01:16 Temperature 37.2 C Temperature Source Oral Sepsis Recent Fever Within 48 Hours Sepsis Action Taken by Nursing Pulse Rate 88 92 H Pulse Rate from SpO2 Sensor 89 91 H Respiratory Rate 23 18 16 Respiratory Effort / Characteristics Non-Labored Respiratory Depth Normal Respiratory Pattern Regular Blood Pressure 105/62 Blood Pressure Mean 76 Pulse Oximetry 92 94 94 Oxygen Delivery Method Room Air Home Medications Current Medication List: was personally reviewed by me Laboratory Data Attestation: I reviewed the patient's lab results. Result diagrams: 01/07/19 01:46 01/07/19 01:46 Lab Results 01/06/19 01/06/19 01/06/19 Range/Units 20:44 20:44 20:44 WBC 9.57 (4.8-10.8) K/uL RBC 4.87 (4.2-5.4) M/uL Hgb 15.8 (12.0-16.0) g/dL Hct 45.2 (37-47) % MCV 92.8 (80-100) fL MCH 32.4 (25-34) pg MCHC 35.0 (32-36) g/dL RDW Std Deviation 51.1 H (36.4-46.3) fL RDW Coeff of Carloz 15.0 H (11.5-14.5) % Plt Count 252 (130-400) K/uL MPV 10.4 (7.4-10.4) fL Immature Gran % (Auto) 0.2 % Neut % (Auto) 39.7 % Lymph % (Auto) 46.1 % [place] % (Auto) 8.4 % Eos % (Auto) 5.1 % Baso % (Auto) 0.5 % Immature Gran # (Auto) 0.02 (0.00-0.02) K/uL Neut # (Auto) 3.80 (1.4-6.5) K/uL Lymph # (Auto) 4.41 H (1.2-3.4) K/uL [place] # (Auto) 0.80 H (0.11-0.59) K/uL Eos # (Auto) 0.49 (0-0.5) K/uL Baso # (Auto) 0.05 (0-0.2) K/uL PT 11.5 (9.0-12.0) Seconds INR 1.1 (0.9-1.1) APTT 23.7 (21.0-31.0) Seconds PTT Ratio 0.9 Sodium 140 (136-145) mmol/L Potassium 3.4 L (3.5-5.1) mmol/L Chloride 108 H (98-107) mmol/L Carbon Dioxide 25 (21-32) mmol/L Anion Gap 7.0 (3-11) BUN 14 (7-18) mg/dl Creatinine 0.81 (0.6-1.2) mg/dl Est Cr Clr Drug Dosing 102.8 ml/min Est GFR ( Amer) 120.3 Est GFR (Non-Af Amer) 103.8 BUN/Creatinine Ratio 17.5 (10-20) Glucose 136 H (70-99) mg/dl Calcium 9.2 (8.5-10.1) mg/dl Total Bilirubin 1.0 (0.2-1) mg/dl AST 21 (15-37) U/L ALT 31 (12-78) U/L Alkaline Phosphatase 71 (45-117) U/L Total Protein 7.9 (6.4-8.2) gm/dl Albumin 4.2 (3.4-5.0) gm/dl Globulin 3.7 (2.5-4.0) gm/dl Albumin/Globulin Ratio 1.1 (0.9-2) Lipase 220 (73-393) U/L HCG, Qual (Negative) Blood Type Antibody Screen Crossmatch 01/06/19 01/06/19 01/07/19 Range/Units 20:44 21:09 01:46 WBC 8.56 (4.8-10.8) K/uL RBC 4.12 L (4.2-5.4) M/uL Hgb 13.3 (12.0-16.0) g/dL Hct 38.8 (37-47) % MCV 94.2 (80-100) fL MCH 32.3 (25-34) pg MCHC 34.3 (32-36) g/dL RDW Std Deviation 50.9 H (36.4-46.3) fL RDW Coeff of Carloz 14.9 H (11.5-14.5) % Plt Count 230 (130-400) K/uL MPV 10.0 (7.4-10.4) fL Immature Gran % (Auto) 0.2 % Neut % (Auto) 48.0 % Lymph % (Auto) 39.1 % [place] % (Auto) 7.2 % Eos % (Auto) 4.9 % Baso % (Auto) 0.6 % Immature Gran # (Auto) 0.02 (0.00-0.02) K/uL Neut # (Auto) 4.10 (1.4-6.5) K/uL Lymph # (Auto) 3.35 (1.2-3.4) K/uL [place] # (Auto) 0.62 H (0.11-0.59) K/uL Eos # (Auto) 0.42 (0-0.5) K/uL Baso # (Auto) 0.05 (0-0.2) K/uL PT (9.0-12.0) Seconds INR (0.9-1.1) APTT (21.0-31.0) Seconds PTT Ratio Sodium (136-145) mmol/L Potassium (3.5-5.1) mmol/L Chloride (98-107) mmol/L Carbon Dioxide (21-32) mmol/L Anion Gap (3-11) BUN (7-18) mg/dl Creatinine (0.6-1.2) mg/dl Est Cr Clr Drug Dosing ml/min Est GFR ( Amer) Est GFR (Non-Af Amer) BUN/Creatinine Ratio (10-20) Glucose (70-99) mg/dl Calcium (8.5-10.1) mg/dl Total Bilirubin (0.2-1) mg/dl AST (15-37) U/L ALT (12-78) U/L Alkaline Phosphatase (45-117) U/L Total Protein (6.4-8.2) gm/dl Albumin (3.4-5.0) gm/dl Globulin (2.5-4.0) gm/dl Albumin/Globulin Ratio (0.9-2) Lipase (73-393) U/L HCG, Qual Negative (Negative) Blood Type A Positive Antibody Screen NEGATIVE Crossmatch See Detail 01/07/19 Range/Units 01:46 WBC (4.8-10.8) K/uL RBC (4.2-5.4) M/uL Hgb (12.0-16.0) g/dL Hct (37-47) % MCV (80-100) fL MCH (25-34) pg MCHC (32-36) g/dL RDW Std Deviation (36.4-46.3) fL RDW Coeff of Carloz (11.5-14.5) % Plt Count (130-400) K/uL MPV (7.4-10.4) fL Immature Gran % (Auto) % Neut % (Auto) % Lymph % (Auto) % [place] % (Auto) % Eos % (Auto) % Baso % (Auto) % Immature Gran # (Auto) (0.00-0.02) K/uL Neut # (Auto) (1.4-6.5) K/uL Lymph # (Auto) (1.2-3.4) K/uL [place] # (Auto) (0.11-0.59) K/uL Eos # (Auto) (0-0.5) K/uL Baso # (Auto) (0-0.2) K/uL PT (9.0-12.0) Seconds INR (0.9-1.1) APTT (21.0-31.0) Seconds PTT Ratio Sodium 139 (136-145) mmol/L Potassium 4.1 D (3.5-5.1) mmol/L Chloride 110 H (98-107) mmol/L Carbon Dioxide 26 (21-32) mmol/L Anion Gap 3.0 (3-11) BUN 14 (7-18) mg/dl Creatinine 0.76 (0.6-1.2) mg/dl Est Cr Clr Drug Dosing 109.6 ml/min Est GFR ( Amer) 130.0 Est GFR (Non-Af Amer) 112.1 BUN/Creatinine Ratio 17.8 (10-20) Glucose 144 H (70-99) mg/dl Calcium 8.3 L (8.5-10.1) mg/dl Total Bilirubin (0.2-1) mg/dl AST (15-37) U/L ALT (12-78) U/L Alkaline Phosphatase (45-117) U/L Total Protein (6.4-8.2) gm/dl Albumin (3.4-5.0) gm/dl Globulin (2.5-4.0) gm/dl Albumin/Globulin Ratio (0.9-2) Lipase (73-393) U/L HCG, Qual (Negative) Blood Type Antibody Screen Crossmatch Administered Medications Sodium Chloride (Nss 1000ml) 1,000 mls @ 125 mls/hr IV .Q8H STA Stop: 01/07/19 04:34 Last Admin: 01/06/19 20:47 Dose: 125 mls/hr Documented by: [id number] Octreotide Acetate 500 mcg/ (Sodium Chloride) 105 mls @ 10.5 mls/hr IV .Q10H STA Stop: 01/07/19 06:55 Last Admin: 01/06/19 21:14 Dose: 50 mcg/hr, 10.5 mls/hr Documented by: [id number] Pantoprazole Sodium 40 mg/ (Dextrose) 100 mls @ 20 mls/hr IV Q5H KEVIN Stop: 02/05/19 21:14 Last Admin: 01/07/19 03:07 Dose: 20 mls/hr Documented by: [id number] Infusion: 01/07/19 02:40 Dose: 20 mls/hr Documented by: [id number] Admin: 01/06/19 21:40 Dose: 20 mls/hr Documented by: [id number] Discontinued Medications Famotidine (Pepcid 20mg Iv Push) 20 mg IV ONE STA Stop: 01/06/19 20:53 Last Admin: 01/06/19 21:13 Dose: 20 mg Documented by: [id number] Pantoprazole Sodium 80 mg/ (Dextrose) 120 mls @ 480 mls/hr IV ONE ONE Stop: 01/06/19 21:14 Last Infusion: 01/06/19 21:40 Dose: 0 mls/hr Documented by: [id number] Admin: 01/06/19 21:14 Dose: 480 mls/hr Documented by: [id number] Ondansetron HCl (Zofran) 4 mg IV NOW STA Stop: 01/06/19 21:14 Last Admin: 01/06/19 21:26 Dose: 4 mg Documented by: [id number] Blood Pressure Blood Pressure Findings: Normal blood pressure Blood Pressure Disposition: further management by hospitalist Discharge Plan Visit Data *Final* Discharge Date/Time: 01/07/19 00:31 Chief Complaint: Vomiting Stated Complaint: THROWING UP BLOOD ED Provider: Rashad Easley Discharge Problem: Upper GI bleed Patient Disposition: Admitted As Inpatient Discharge Instructions Interventions: ED Discharge Assessment Last Done: 01/07/19 00:31 The scribe's documentation has been prepared under my direction and personally reviewed by me in its entirety. I confirm that the note above accurately reflects all work, treatment, procedures, and medical decision making performed by me.
[2019-01-07] MEDS: OCTREOTIDE ACETATE 500 MCG in 0.9 % SODIUM CHLORIDE 100 ML IV SCH ×2 (06:41→16:41)
--- NOTE | 2019-01-07 08:52 | Anesthesiology Consultation ---
Date of Service January 07, 2019 Assessment & Plan (1) Encounter for pre-operative examination: Chart Review Chart Review: Acceptable Risk for Surgery and Patient NOT seen in Pre Admission Testing Consults Requested none History Surgery Operation Date: 01/07/19 09:00 Proposed Procedures p Esophagogastroduodenoscopy - Kyle Torres MD Height/Weight Height: 5 ft 6 in Weight: 66 kg Allergies Allergy/AdvReac Type Severity Reaction Status Date / Time Iodinated Contrast- Oral and Allergy Intermediate hives Verified 01/06/19 21:10 IV Dye Medications Home Medications Medication Instructions Recorded Confirmed Last Taken albuterol sulfate 2 - 4 puff INHALATION Q4H PRN 07/13/18 01/06/19 Unknown levonorgestrel 1 ea INTRAUTERINE DIRECTED 01/06/19 01/06/19 Unknown Active Medications Generic Name Dose Route Start Last Admin Trade Name Freq PRN Reason Stop Dose Admin Pantoprazole Sodium 40 mg/ 100 mls @ 20 mls/hr 01/06/19 21:15 01/07/19 06:43 Dextrose IV 02/05/19 21:14 20 mls/hr Q5H KEVIN Administration Octreotide Acetate 500 mcg/ 105 mls @ 10.5 mls/hr 01/07/19 06:30 01/07/19 06:41 Sodium Chloride IV 02/06/19 06:29 50 mcg/hr .Q10H KEVIN 10.5 mls/hr Administration 50 MCG/HR Past Medical History Medical History Gastropathy Esophageal varices Asthma Esophagovariceal bleed (Acute) GIB (gastrointestinal bleeding) Past Family History Family History Other Family history non-contributory Past Surgical History Surgical History History of splenectomy History of incisional hernia repair Social History Smoking Status: Never smoker Hx Alcohol Use: No Hx Substance Use: No Physical Exam Vital Signs Last Vital Signs Temp 36.9 C 01/07/19 06:53 Pulse 73 01/07/19 06:53 Resp 14 01/07/19 06:53 BP 106/65 01/07/19 06:53 Pulse Ox 92 01/07/19 06:53 Testing Laboratory Results 01/07/19 01:46 01/07/19 01:46 Blood Type A Positive 01/06/19 21:09 Antibody Screen NEGATIVE 01/06/19 21:09 PT 11.5 Seconds (9.0-12.0) 01/06/19 20:44 INR 1.1 (0.9-1.1) 01/06/19 20:44 APTT 23.7 Seconds (21.0-31.0) 01/06/19 20:44
--- NOTE | 2019-01-07 08:57 | Gastrointestinal Consultation ---
Date of Consultation January 07, 2019 Assessment & Plan (1) Upper GI bleed: Unlikely Variceal bleeding in view of stable vitals and H/H, likely related to portal HTN gastropathy, MWT or esophagitis. Plan for EGD today. IV PPI. IV Octrotide. No need for ABx given lack of cirrhosis. 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 No melena and stool is brown. Labs showed Hgb of 15 on admission with normal BUN. Vital normal. She did not tolerate NSBB as OP and was stopped due to hypotension. Recent Duplex showed patent hepatic vein and cavernous transformation of portal vein. Her LFTs are normal. She had splenectomy already. Allergies Allergy/AdvReac Type Severity Reaction Status Date / Time Iodinated Contrast- Oral and Allergy Intermediate hives Verified 01/06/19 21:10 IV Dye Home Medications Home Medications Medication Instructions Recorded Confirmed Type albuterol sulfate 2 - 4 puff INHALATION Q4H PRN 07/13/18 01/06/19 History levonorgestrel 1 ea INTRAUTERINE DIRECTED 01/06/19 01/06/19 History Patient History Medical History Gastropathy Esophageal varices Asthma Esophagovariceal bleed (Acute) GIB (gastrointestinal bleeding) Surgical History History of splenectomy History of incisional hernia repair Family History Other Family history non-contributory Social History Preferred Language: Romansh Communication Ability: Effective Real Estate Administrative Assistant Required: No Beliefs That Will Affect Care: None Current Living Situation: Parent Other Information That Helps Us Care for You: No Feels Safe at Home: Yes Smoking Status: Never smoker Hx Alcohol Use: No Hx Substance Use: No Review of Systems Constitutional: no fever, no chills, no fatigue and no weight loss Eyes: no eye pain and no worsening vision Ear, Nose, Mouth, Throat: no tinnitus, no dizziness, no nasal discharge and no epistaxis Respiratory: no cough, no dyspnea, no dyspnea on exertion and no wheezing Cardiovascular: no chest pain, no orthopnea, no palpitations and no edema Gastrointestinal: as per Subjective / HPI Genitourinary (Female): no dysuria, no urinary frequency, no urinary incontinence and no hematuria Musculoskeletal: no stiffness and no myalgia Neurologic: no localized weakness, no paralysis, no tremor(s) and no headache(s) Endocrine: no polydipsia and no polyuria Hematologic / Lymphatic: no easy bleeding and no night sweats Physical Exam Vital Signs (Past 24 Hours): Last Vital Signs Temp 36.9 C 01/07/19 06:53 Pulse 73 01/07/19 06:53 Resp 14 01/07/19 06:53 BP 106/65 01/07/19 06:53 Pulse Ox 92 01/07/19 06:53 Constitutional: + well hydrated, cooperative and comfortable Eyes: PERRL, conjunctivae normal, anicteric sclerae ENMT: external ear and nose normal, oropharynx normal Neck: normal visual inspection and trachea midline Respiratory: normal respiratory effort, lungs clear to auscultation Auscultation: no wheezes Cardiovascular: RRR, no murmur, no edema Gastrointestinal (Abdomen): normal bowel sounds, soft, nontender, no hepatosplenomegaly Musculoskeletal: no cyanosis or clubbing, extremities motor strength 5/5 Skin: no rashes, warm and dry Neurologic: awake; no focal motor deficits Motor/Sensory: no tremor Results & Data Laboratory Results Laboratory Results - last 24 hr 01/06/19 01/06/19 01/06/19 20:44 20:44 20:44 WBC 9.57 RBC 4.87 Hgb 15.8 Hct 45.2 MCV 92.8 MCH 32.4 MCHC 35.0 RDW Std Deviation 51.1 H RDW Coeff of Carloz 15.0 H Plt Count 252 MPV 10.4 Immature Gran % (Auto) 0.2 Neut % (Auto) 39.7 Lymph % (Auto) 46.1 [place] % (Auto) 8.4 Eos % (Auto) 5.1 Baso % (Auto) 0.5 Immature Gran # (Auto) 0.02 Neut # (Auto) 3.80 Lymph # (Auto) 4.41 H [place] # (Auto) 0.80 H Eos # (Auto) 0.49 Baso # (Auto) 0.05 PT 11.5 INR 1.1 APTT 23.7 PTT Ratio 0.9 Sodium 140 Potassium 3.4 L Chloride 108 H Carbon Dioxide 25 Anion Gap 7.0 BUN 14 Creatinine 0.81 Est Cr Clr Drug Dosing 102.8 Est GFR ( Amer) 120.3 Est GFR (Non-Af Amer) 103.8 BUN/Creatinine Ratio 17.5 Glucose 136 H Calcium 9.2 Total Bilirubin 1.0 AST 21 ALT 31 Alkaline Phosphatase 71 Total Protein 7.9 Albumin 4.2 Globulin 3.7 Albumin/Globulin Ratio 1.1 Lipase 220 HCG, Qual Blood Type Antibody Screen Crossmatch 01/06/19 01/06/19 01/07/19 20:44 21:09 01:46 WBC 8.56 RBC 4.12 L Hgb 13.3 Hct 38.8 MCV 94.2 MCH 32.3 MCHC 34.3 RDW Std Deviation 50.9 H RDW Coeff of Carloz 14.9 H Plt Count 230 MPV 10.0 Immature Gran % (Auto) 0.2 Neut % (Auto) 48.0 Lymph % (Auto) 39.1 [place] % (Auto) 7.2 Eos % (Auto) 4.9 Baso % (Auto) 0.6 Immature Gran # (Auto) 0.02 Neut # (Auto) 4.10 Lymph # (Auto) 3.35 [place] # (Auto) 0.62 H Eos # (Auto) 0.42 Baso # (Auto) 0.05 PT INR APTT PTT Ratio Sodium Potassium Chloride Carbon Dioxide Anion Gap BUN Creatinine Est Cr Clr Drug Dosing Est GFR ( Amer) Est GFR (Non-Af Amer) BUN/Creatinine Ratio Glucose Calcium Total Bilirubin AST ALT Alkaline Phosphatase Total Protein Albumin Globulin Albumin/Globulin Ratio Lipase HCG, Qual Negative Blood Type A Positive Antibody Screen NEGATIVE Crossmatch See Detail 01/07/19 01:46 WBC RBC Hgb Hct MCV MCH MCHC RDW Std Deviation RDW Coeff of Carloz Plt Count MPV Immature Gran % (Auto) Neut % (Auto) Lymph % (Auto) [place] % (Auto) Eos % (Auto) Baso % (Auto) Immature Gran # (Auto) Neut # (Auto) Lymph # (Auto) [place] # (Auto) Eos # (Auto) Baso # (Auto) PT INR APTT PTT Ratio Sodium 139 Potassium 4.1 D Chloride 110 H Carbon Dioxide 26 Anion Gap 3.0 BUN 14 Creatinine 0.76 Est Cr Clr Drug Dosing 109.6 Est GFR ( Amer) 130.0 Est GFR (Non-Af Amer) 112.1 BUN/Creatinine Ratio 17.8 Glucose 144 H Calcium 8.3 L Total Bilirubin AST ALT Alkaline Phosphatase Total Protein Albumin Globulin Albumin/Globulin Ratio Lipase HCG, Qual Blood Type Antibody Screen Crossmatch
[2019-01-07] MEDS ORDERED: MIDAZOLAM HCL 1 MG/ML 2ML VIAL ONE (08:58)
[2019-01-07] MEDS ORDERED: fentaNYL citrate 100 MCG/2 ML VIAL ONE (08:58)
[2019-01-07] MEDS ORDERED: PROPOFOL IV EMULSION 10 MG/ML 20 ML VIAL IV ONE ×2 (08:58→09:39)
[2019-01-07] MEDS ORDERED: LIDOCAINE HCL 2% 2 ML VIAL/AMP(20MG/ML) INFIL ONE (08:58)
[2019-01-07] MEDS ORDERED: METOCLOPRAMIDE HCL INJ 5 MG/ML 2 ML VIAL ONE (09:39)
--- NOTE | 2019-01-07 09:41 | Operative Report ---
Post Operative Report Pre & Post Diagnosis Operation Date: 01/07/19 09:00 Pre-Op Diagnosis: Hematemesis Procedure Operation Date: 01/07/19 09:00 Actual Procedures p Esophagogastroduodenoscopy(Not Applicable) - Kyle Torres MD Surgeon Kyle Torres MD Special Education Curriculum Specialist None Estimated Blood Loss 0 Findings See Below (Large amount of Food in stomach. One blood clot seen. Eroding coils. Esophageal varives with red husam sign.) Specimens None Description of Procedure EGD I attest to the content of the Intraoperative Record and any orders documented therein. Any exceptions are noted below.
--- NOTE | 2019-01-07 10:08 | Anesthesiology Progress Note ---
Date of Service January 07, 2019 Anesthesia Post Procedure Vital Signs Vital Signs: Temp Pulse Pulse Pulse Resp BP BP 01/07/19 10:05 37 C 73 14 99/63 L 01/07/19 09:55 70 15 95/53 L 01/07/19 09:48 36.8 C 82 16 94/54 L 01/07/19 06:53 36.9 C 73 14 01/07/19 04:00 36.8 C 75 16 102/66 01/07/19 01:16 37.2 C 16 01/07/19 00:15 92 H 18 01/07/19 00:01 88 23 105/62 01/07/19 00:00 89 21 01/06/19 23:45 98 H 19 01/06/19 23:30 96 H 20 103/55 L 01/06/19 23:15 96 H 22 01/06/19 23:07 91 H 16 114/75 01/06/19 23:00 92 H 20 01/06/19 22:45 96 H 20 01/06/19 22:30 88 18 01/06/19 22:15 87 17 01/06/19 22:00 85 17 01/06/19 21:45 85 18 01/06/19 21:30 87 19 01/06/19 21:15 97 H 19 01/06/19 21:00 103 H 19 01/06/19 20:48 01/06/19 20:47 102 H 26 H 01/06/19 20:42 99 H 22 123/92 01/06/19 20:27 36.8 C 111 H 18 129/82 BP Pulse Ox 01/07/19 10:05 97 01/07/19 09:55 96 01/07/19 09:48 95 01/07/19 06:53 106/65 92 01/07/19 04:00 90 01/07/19 01:16 94 01/07/19 00:15 94 01/07/19 00:01 92 01/07/19 00:00 93 01/06/19 23:45 92 01/06/19 23:30 92 01/06/19 23:15 94 01/06/19 23:07 01/06/19 23:00 93 01/06/19 22:45 94 01/06/19 22:30 92 01/06/19 22:15 93 01/06/19 22:00 93 01/06/19 21:45 96 01/06/19 21:30 01/06/19 21:15 97 01/06/19 21:00 97 01/06/19 20:48 97 01/06/19 20:47 98 01/06/19 20:42 95 01/06/19 20:27 98 Notes Mental Status: alert / awake / arousable Patient Amnestic to Procedure: Yes Nausea / Vomiting: adequately controlled Pain: adequately controlled Airway Patency, RR, SpO2: stable & adequate BP & HR: stable & adequate Hydration State: stable & adequate Anesthetic Complications: no major complications apparent and Pt Satisfied with anesthetic care
--- NOTE | 2019-01-07 10:37 | GI REPORT ---
Patient Name: Gisselle Roger Procedure Date: 01/07/2019 8:55 AM Date of : 1995 Admit Type: Inpatient Age: 23 Gender: Female Attending MD: Kyle Torres MD Procedure: Upper GI endoscopy Providers: Kyle Torres MD Referring MD: Neeta Landrum Md Indications: Hematemesis Medicines: Monitored Anesthesia Care Complications: No immediate complications. Estimated Blood Loss: Estimated blood loss: none. Procedure: Pre-Anesthesia Assessment: - Prior to the procedure, a History and Physical was performed, and patient medications and allergies were reviewed. The patient is competent. The risks and benefits of the procedure and the sedation options and risks were discussed with the patient. All questions were answered and informed consent was obtained. Patient identification and proposed procedure were verified by the physician and the nurse in the procedure room. Mental Status Examination: alert and oriented. Airway Examination: normal oropharyngeal airway and neck mobility. Respiratory Examination: clear to auscultation. CV Examination: normal. ASA Grade Assessment: E - Emergency. After reviewing the risks and benefits, the patient was deemed in satisfactory condition to undergo the procedure. The anesthesia plan was to use monitored anesthesia care (MAC). Immediately prior to administration of medications, the patient was re-assessed for adequacy to receive sedatives. The heart rate, respiratory rate, oxygen saturations, blood pressure, adequacy of pulmonary ventilation, and response to care were monitored throughout the procedure. The physical status of the patient was re-assessed after the procedure. After obtaining informed consent, the endoscope was passed under direct vision. Throughout the procedure, the patient's blood pressure, pulse, and oxygen saturations were monitored continuously. The Endoscope was introduced through the mouth, and advanced to the second part of duodenum. The upper GI endoscopy was accomplished without difficulty. The patient tolerated the procedure well. Findings: Two columns of non-bleeding large (> 5 mm) varices were found in the lower third of the esophagus. Stigmata of recent bleeding were evident and small red husam signs were present. No active bleeding now. Banding deferred due to large amount of food in the stomach. A large amount of food (residue) was found in the gastric body precluding visualization. Clotted blood was found in the gastric body. Vascular coils were found in the gastric fundus. The duodenal bulb and second portion of the duodenum were normal. Impression: - Large (> 5 mm) esophageal varices. Banding deferred due to large amount of food in the stomach. - A large amount of food (residue) in the stomach. Clotted blood in the gastric body. - Vascular coils were found in the stomach. No significant gastric varices seen. - Normal duodenal bulb and second portion of the duodenum. - No specimens collected. Recommendation: - Return patient to [facility] for [facility] care. - NPO. - Use a proton pump inhibitor IV daily. - Continue IV Octreotide. - Use metoclopramide 10 mg IV BID. - Monitor H/H q8hrs. - Repeat upper endoscopy tomorrow for treatment of the varices. Kyle Torres MD 01/07/2019 10:37:20 AM This report has been signed electronically. Note Initiated On: 01/07/2019 8:55 AM Number of Addenda: 0 I attest to the content of the Intraoperative Record and orders documented therein, exceptions below {[id number]}
[2019-01-07] MEDS ORDERED: METOCLOPRAMIDE HCL INJ 5 MG/ML 2 ML VIAL IV SCH (12:00)
--- NOTE | 2019-01-07 12:09 | Hospitalist Progress Note ---
Date of Service January 07, 2019 Assessment & Plan (1) Upper GI bleed: Pt is a 23 yo female with a h/o PVT and portal HTN with bleeding esophageal varices possibly secondary to OCP use or previous umbilical vein catheterization presenting with hematemesis. Hgb slight drop to 13 from 15 overnight, no further hematemesis or melena since last night. EGD with large varices seen with red husam sign, clot in stomach but unable to band due to large amount of retained food -keep NPO, continue IVFs -continue H/H q8h and transfuse as needed -plan for repeat EGD tomorrow for variceal banding -continue Protonix drip -continue Octreotide drip -start Reglan 10mg IV bid to clear out stomach -Appreciate GI management (2) Acute blood loss anemia: as above, secondary to GIB -follow CBC (3) Esophageal varices: Patient with history of portal vein thrombosis, esophageal varices -Octreotide gtt as above -Trend H/H -plan for banding tomorrow (4) Asthma: Stable. 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 Denies any nausea or vomiting since yesterday. No BM since yesterday. No abd pain. No other concerns EGD with retained food in stomach with clot and large esophageal varices Review of Systems All systems reviewed & are unremarkable except as noted in HPI & below Physical Exam Vital Signs (Past 24 Hours): Last Vital Signs Temp 36.4 C L 01/07/19 10:33 Pulse 93 H 01/07/19 11:05 Resp 18 01/07/19 11:05 BP 101/66 01/07/19 11:05 Pulse Ox 97 01/07/19 11:05 Constitutional: WD/WN, vitals as above Eyes: PERRL, conjunctivae normal, anicteric sclerae ENMT: external ear and nose normal, oropharynx normal Neck: trachea midline, no thyromegaly Respiratory: normal respiratory effort, lungs clear to auscultation Cardiovascular: RRR, no murmur, no edema Gastrointestinal (Abdomen): normal bowel sounds, soft, nontender, no hep atosplenomegaly Musculoskeletal: Extremities: extremities normal to inspection; no cyanosis and no clubbing Skin: no rashes, warm and dry Neurologic: moves all extremities and awake; no focal motor deficits Psychiatric: A+Ox3, euthymic affect Results & Data Laboratory Results 01/07/19 01/07/19 01/06/19 Range/Units 01:46 01:46 21:09 WBC 8.56 (4.8-10.8) K/uL RBC 4.12 L (4.2-5.4) M/uL Hgb 13.3 (12.0-16.0) g/dL Hct 38.8 (37-47) % MCV 94.2 (80-100) fL MCH 32.3 (25-34) pg MCHC 34.3 (32-36) g/dL RDW Std Deviation 50.9 H (36.4-46.3) fL RDW Coeff of Carloz 14.9 H (11.5-14.5) % Plt Count 230 (130-400) K/uL MPV 10.0 (7.4-10.4) fL Immature Gran % (Auto) 0.2 % Neut % (Auto) 48.0 % Lymph % (Auto) 39.1 % [place] % (Auto) 7.2 % Eos % (Auto) 4.9 % Baso % (Auto) 0.6 % Immature Gran # (Auto) 0.02 (0.00-0.02) K/uL Neut # (Auto) 4.10 (1.4-6.5) K/uL Lymph # (Auto) 3.35 (1.2-3.4) K/uL [place] # (Auto) 0.62 H (0.11-0.59) K/uL Eos # (Auto) 0.42 (0-0.5) K/uL Baso # (Auto) 0.05 (0-0.2) K/uL PT (9.0-12.0) Seconds INR (0.9-1.1) APTT (21.0-31.0) Seconds PTT Ratio Sodium 139 (136-145) mmol/L Potassium 4.1 D (3.5-5.1) mmol/L Chloride 110 H (98-107) mmol/L Carbon Dioxide 26 (21-32) mmol/L Anion Gap 3.0 (3-11) BUN 14 (7-18) mg/dl Creatinine 0.76 (0.6-1.2) mg/dl Est Cr Clr Drug Dosing 109.6 ml/min Est GFR ( Amer) 130.0 Est GFR (Non-Af Amer) 112.1 BUN/Creatinine Ratio 17.8 (10-20) Glucose 144 H (70-99) mg/dl Calcium 8.3 L (8.5-10.1) mg/dl Total Bilirubin (0.2-1) mg/dl AST (15-37) U/L ALT (12-78) U/L Alkaline Phosphatase (45-117) U/L Total Protein (6.4-8.2) gm/dl Albumin (3.4-5.0) gm/dl Globulin (2.5-4.0) gm/dl Albumin/Globulin Ratio (0.9-2) Lipase (73-393) U/L HCG, Qual (Negative) Blood Type A Positive Antibody Screen NEGATIVE Crossmatch See Detail 01/06/19 01/06/19 01/06/19 Range/Units 20:44 20:44 20:44 WBC (4.8-10.8) K/uL RBC (4.2-5.4) M/uL Hgb (12.0-16.0) g/dL Hct (37-47) % MCV (80-100) fL MCH (25-34) pg MCHC (32-36) g/dL RDW Std Deviation (36.4-46.3) fL RDW Coeff of Carloz (11.5-14.5) % Plt Count (130-400) K/uL MPV (7.4-10.4) fL Immature Gran % (Auto) % Neut % (Auto) % Lymph % (Auto) % [place] % (Auto) % Eos % (Auto) % Baso % (Auto) % Immature Gran # (Auto) (0.00-0.02) K/uL Neut # (Auto) (1.4-6.5) K/uL Lymph # (Auto) (1.2-3.4) K/uL [place] # (Auto) (0.11-0.59) K/uL Eos # (Auto) (0-0.5) K/uL Baso # (Auto) (0-0.2) K/uL PT 11.5 (9.0-12.0) Seconds INR 1.1 (0.9-1.1) APTT 23.7 (21.0-31.0) Seconds PTT Ratio 0.9 Sodium 140 (136-145) mmol/L Potassium 3.4 L (3.5-5.1) mmol/L Chloride 108 H (98-107) mmol/L Carbon Dioxide 25 (21-32) mmol/L Anion Gap 7.0 (3-11) BUN 14 (7-18) mg/dl Creatinine 0.81 (0.6-1.2) mg/dl Est Cr Clr Drug Dosing 102.8 ml/min Est GFR ( Amer) 120.3 Est GFR (Non-Af Amer) 103.8 BUN/Creatinine Ratio 17.5 (10-20) Glucose 136 H (70-99) mg/dl Calcium 9.2 (8.5-10.1) mg/dl Total Bilirubin 1.0 (0.2-1) mg/dl AST 21 (15-37) U/L ALT 31 (12-78) U/L Alkaline Phosphatase 71 (45-117) U/L Total Protein 7.9 (6.4-8.2) gm/dl Albumin 4.2 (3.4-5.0) gm/dl Globulin 3.7 (2.5-4.0) gm/dl Albumin/Globulin Ratio 1.1 (0.9-2) Lipase 220 (73-393) U/L HCG, Qual Negative (Negative) Blood Type Antibody Screen Crossmatch 01/06/19 Range/Units 20:44 WBC 9.57 (4.8-10.8) K/uL RBC 4.87 (4.2-5.4) M/uL Hgb 15.8 (12.0-16.0) g/dL Hct 45.2 (37-47) % MCV 92.8 (80-100) fL MCH 32.4 (25-34) pg MCHC 35.0 (32-36) g/dL RDW Std Deviation 51.1 H (36.4-46.3) fL RDW Coeff of Carloz 15.0 H (11.5-14.5) % Plt Count 252 (130-400) K/uL MPV 10.4 (7.4-10.4) fL Immature Gran % (Auto) 0.2 % Neut % (Auto) 39.7 % Lymph % (Auto) 46.1 % [place] % (Auto) 8.4 % Eos % (Auto) 5.1 % Baso % (Auto) 0.5 % Immature Gran # (Auto) 0.02 (0.00-0.02) K/uL Neut # (Auto) 3.80 (1.4-6.5) K/uL Lymph # (Auto) 4.41 H (1.2-3.4) K/uL [place] # (Auto) 0.80 H (0.11-0.59) K/uL Eos # (Auto) 0.49 (0-0.5) K/uL Baso # (Auto) 0.05 (0-0.2) K/uL PT (9.0-12.0) Seconds INR (0.9-1.1) APTT (21.0-31.0) Seconds PTT Ratio Sodium (136-145) mmol/L Potassium (3.5-5.1) mmol/L Chloride (98-107) mmol/L Carbon Dioxide (21-32) mmol/L Anion Gap (3-11) BUN (7-18) mg/dl Creatinine (0.6-1.2) mg/dl Est Cr Clr Drug Dosing ml/min Est GFR ( Amer) Est GFR (Non-Af Amer) BUN/Creatinine Ratio (10-20) Glucose (70-99) mg/dl Calcium (8.5-10.1) mg/dl Total Bilirubin (0.2-1) mg/dl AST (15-37) U/L ALT (12-78) U/L Alkaline Phosphatase (45-117) U/L Total Protein (6.4-8.2) gm/dl Albumin (3.4-5.0) gm/dl Globulin (2.5-4.0) gm/dl Albumin/Globulin Ratio (0.9-2) Lipase (73-393) U/L HCG, Qual (Negative) Blood Type Antibody Screen Crossmatch
[2019-01-07 12:17] LABS: Basophils # (auto) 0.04 K/uL (0-0.2); Basophils % (auto) 0.7 %; Eosinophils # (auto) 0.46 K/uL (0-0.5); Eosinophils % (auto) 7.5 %; Hematocrit (blood only) 37.1 % (37-47); Hemoglobin 12.6 g/dL (12.0-16.0); Immature Granulocytes # (auto) 0.01 K/uL (0.00-0.02); Immature Granulocytes % (auto) 0.2 %; Lymphocytes # (auto) 2.79 K/uL (1.2-3.4); Lymphocytes % (auto) 45.7 %; Mean Corpuscular Volume 93.2 fL (80-100); Monocytes # (auto) 0.49 K/uL (0.11-0.59); Neutrophils # (auto) 2.31 K/uL (1.4-6.5); Neutrophils % (auto) 37.9 %; Platelet Count 220 K/uL (130-400); RDW Standard Deviation 51.4 fL (36.4-46.3); Red Blood Count 3.98 M/uL (4.2-5.4)
[2019-01-07] MEDS: SODIUM CHLORIDE 0.9% 1000ML 1,000 ML IV SCH (13:10)
[2019-01-07] MEDS: METOCLOPRAMIDE HCL INJ 5 MG/ML 2 ML VIAL IV SCH ×2 (15:14→21:27)
[2019-01-07 17:10] LABS: Basophils # (auto) 0.03 K/uL (0-0.2); Basophils % (auto) 0.5 %; Eosinophils # (auto) 0.55 K/uL (0-0.5); Eosinophils % (auto) 9.5 %; Hematocrit (blood only) 35.6 % (37-47); Hemoglobin 12.2 g/dL (12.0-16.0); Immature Granulocytes # (auto) 0.01 K/uL (0.00-0.02); Immature Granulocytes % (auto) 0.2 %; Lymphocytes # (auto) 2.27 K/uL (1.2-3.4); Lymphocytes % (auto) 39.2 %; Mean Corpuscular Hgb Conc 34.3 g/dL (32-36); Mean Corpuscular Volume 93.9 fL (80-100); Mean Platelet Volume 9.9 fL (7.4-10.4); Monocytes # (auto) 0.69 K/uL (0.11-0.59); Monocytes % (auto) 11.9 %; Neutrophils # (auto) 2.24 K/uL (1.4-6.5); Neutrophils % (auto) 38.7 %; Platelet Count 210 K/uL (130-400); RDW Standard Deviation 51.1 fL (36.4-46.3); Red Blood Count 3.79 M/uL (4.2-5.4); White Blood Count 5.79 K/uL (4.8-10.8)
[2019-01-08] MEDS: SODIUM CHLORIDE 0.9% 1000ML 1,000 ML IV SCH ×2 (01:33→12:37)
[2019-01-08 01:34] LABS: Basophils # (auto) 0.05 K/uL (0-0.2); Basophils % (auto) 0.6 %; Eosinophils # (auto) 0.67 K/uL (0-0.5); Hematocrit (blood only) 35.9 % (37-47); Hemoglobin 12.2 g/dL (12.0-16.0); Immature Granulocytes # (auto) 0.02 K/uL (0.00-0.02); Immature Granulocytes % (auto) 0.2 %; Lymphocytes # (auto) 2.73 K/uL (1.2-3.4); Lymphocytes % (auto) 32.6 %; Mean Platelet Volume 9.9 fL (7.4-10.4); Monocytes # (auto) 0.64 K/uL (0.11-0.59); Monocytes % (auto) 7.6 %; Neutrophils # (auto) 4.26 K/uL (1.4-6.5); Platelet Count 218 K/uL (130-400); RDW Coefficient of Variation 14.9 % (11.5-14.5); Red Blood Count 3.78 M/uL (4.2-5.4); White Blood Count 8.37 K/uL (4.8-10.8)
[2019-01-08] MEDS: OCTREOTIDE ACETATE 500 MCG in 0.9 % SODIUM CHLORIDE 100 ML IV SCH ×2 (01:34→12:40)
[2019-01-08] MEDS: PANTOprazole 40 MG in DEXTROSE 5% 100 ML IV SCH ×3 (03:56→12:36)
[2019-01-08] MEDS: METOCLOPRAMIDE HCL INJ 5 MG/ML 2 ML VIAL IV SCH ×2 (06:22→14:35)
[2019-01-08 09:40] LABS: Basophils # (auto) 0.06 K/uL (0-0.2); Basophils % (auto) 0.9 %; Eosinophils # (auto) 0.84 K/uL (0-0.5); Eosinophils % (auto) 12.5 %; Hematocrit (blood only) 38.3 % (37-47); Immature Granulocytes # (auto) 0.01 K/uL (0.00-0.02); Immature Granulocytes % (auto) 0.1 %; Lymphocytes # (auto) 2.61 K/uL (1.2-3.4); Lymphocytes % (auto) 38.8 %; Mean Corpuscular Hgb Conc 33.9 g/dL (32-36); Monocytes # (auto) 0.64 K/uL (0.11-0.59); Monocytes % (auto) 9.5 %; Neutrophils # (auto) 2.56 K/uL (1.4-6.5); Neutrophils % (auto) 38.2 %; Platelet Count 230 K/uL (130-400); RDW Coefficient of Variation 14.9 % (11.5-14.5); RDW Standard Deviation 51.3 fL (36.4-46.3); Red Blood Count 4.03 M/uL (4.2-5.4); White Blood Count 6.72 K/uL (4.8-10.8)
--- NOTE | 2019-01-08 10:00 | History & Physical Bridge Note ---
Date of Service January 08, 2019 History & Physical Bridge Note I have examined the patient, reviewed the History & Physical and in the interval since the performance of the History & Physical I have noted the following changes of clinical significance: no changes noted
[2019-01-08 10:10] LABS: BUN Creatinine Ratio 16.6 (10-20); Calcium 8.3 mg/dl (8.5-10.1); Creatinine Clr Calc Pharmacy 115.7 ml/min; Est GFR (African American) 138.7; Est GFR (Non-African American) 119.7; Potassium 3.7 mmol/L (3.5-5.1)
[2019-01-08] MEDS ORDERED: SUCCINYLCHOLINE CHLORIDE 20 MG/ML 10 ML VIAL ONE (10:16)
[2019-01-08] MEDS ORDERED: LIDOCAINE HCL 2% 2 ML VIAL/AMP(20MG/ML) INFIL ONE (10:16)
[2019-01-08] MEDS ORDERED: DEXAMETHASONE SOD INJ 4 MG/ML VIAL ONE (10:16)
[2019-01-08] MEDS ORDERED: PROPOFOL IV EMULSION 10 MG/ML 20 ML VIAL IV ONE (10:16)
[2019-01-08] MEDS ORDERED: fentaNYL citrate 100 MCG/2 ML VIAL ONE (10:16)
[2019-01-08] MEDS ORDERED: ONDANSETRON INJ 2 MG/ML 2 ML VIAL ONE (10:16)
[2019-01-08] MEDS ORDERED: MIDAZOLAM HCL 1 MG/ML 2ML VIAL ONE (10:16)
[2019-01-08] MEDS ORDERED: ePHEDrine sulfate 50 MG/ML AMP ONE (10:16)
[2019-01-08] MEDS ORDERED: ATROPINE SULFATE 0.1 MG/ML 10ML SYR IV PRN (10:36)
[2019-01-08] MEDS ORDERED: ePHEDrine sulfate 50 MG/ML AMP IV PRN (10:36)
--- NOTE | 2019-01-08 11:03 | Operative Report ---
Post Operative Report Pre & Post Diagnosis Operation Date: 01/07/19 09:00 Pre-Op Diagnosis: Hematemesis Post-Op Diagnosis: Gastrointestinal Bleed Operation Date: 01/08/19 07:30 Pre-Op Diagnosis: Hematemesis Post-Op Diagnosis: Hematemsis and Gastric Varcies Procedure Operation Date: 01/07/19 09:00 Actual Procedures p Esophagogastroduodenoscopy(Not Applicable) - Kyle Torres MD Operation Date: 01/08/19 07:30 Actual Procedures p Esophagogastroduodenoscopy - Kyle Torres MD Surgeon Kyle Torres MD Aspnet Developer None Estimated Blood Loss 0 Findings See Below (Actively slowly oozing gastric varices.) Specimens None Description of Procedure EGD I attest to the content of the Intraoperative Record and any orders documented therein. Any exceptions are noted below.
--- NOTE | 2019-01-08 11:26 | GI REPORT ---
Patient Name: Gisselle Roger Procedure Date: 01/08/2019 10:38 AM Date of : 1995 Admit Type: Inpatient Age: 23 Gender: Female Attending MD: Kyle Torres MD Procedure: Upper GI endoscopy Providers: Kyle Torres MD Referring MD: Neeta Landrum Md Indications: Hematemesis Medicines: General Anesthesia Complications: No immediate complications. Estimated Blood Loss: Estimated blood loss: none. Procedure: Pre-Anesthesia Assessment: - Prior to the procedure, a History and Physical was performed, and patient medications and allergies were reviewed. The patient is competent. The risks and benefits of the procedure and the sedation options and risks were discussed with the patient. All questions were answered and informed consent was obtained. Patient identification and proposed procedure were verified by the physician and the nurse in the procedure room. Mental Status Examination: alert and oriented. Airway Examination: normal oropharyngeal airway and neck mobility. Respiratory Examination: clear to auscultation. CV Examination: normal. ASA Grade Assessment: III - A patient with severe systemic disease. After reviewing the risks and benefits, the patient was deemed in satisfactory condition to undergo the procedure. The anesthesia plan was to use general anesthesia. Immediately prior to administration of medications, the patient was re-assessed for adequacy to receive sedatives. The heart rate, respiratory rate, oxygen saturations, blood pressure, adequacy of pulmonary ventilation, and response to care were monitored throughout the procedure. The physical status of the patient was re-assessed after the procedure. After obtaining informed consent, the endoscope was passed under direct vision. Throughout the procedure, the patient's blood pressure, pulse, and oxygen saturations were monitored continuously. The Endoscope was introduced through the mouth, and advanced to the second part of duodenum. The upper GI endoscopy was accomplished without difficulty. The patient tolerated the procedure well. Findings: Non-bleeding grade II varices were found in the lower third of the esophagus. There was a small red husam sign. Type 2 gastroesophageal varices (GOV2, esophageal varices which extend along the fundus) with slow oozing blood were found in the gastric fundus. They were medium in largest diameter. Eroding vascular coils were found in the gastric fundus. The duodenal bulb and second portion of the duodenum were normal. Impression: - Non-bleeding grade II esophageal varices. - Recurring type 2 gastroesophageal varices (GOV2, esophageal varices which extend along the fundus), actively slowly oozing blood. This indicates refilling of the gastric varices likely due to continuous loss of the vascular coils. - Vascular coils were found in the stomach. - Normal duodenal bulb and second portion of the duodenum. - No specimens collected. Recommendation: - Transfer patient to another tertiary care hospital for BRTO, TIPS or surgical shunt. - NPO. - Continue IV Octreotide and PPI. - Monitor H/H. - PRN Antiemetics. Kyle Torres MD 01/08/2019 11:25:59 AM This report has been signed electronically. Note Initiated On: 01/08/2019 10:38 AM Number of Addenda: 0 I attest to the content of the Intraoperative Record and orders documented therein, exceptions below {[id number]}
--- NOTE | 2019-01-08 12:46 | Discharge Summary ---
Date of Service January 08, 2019 Admission HPI Per Admitting Provider Patient is a 23yo female with history of portal vein thrombosis resulting in massive variceal bleed in 2016. At that time she presented with large volume hematemesis. She became hemodynamically unstable, had EGD and Bharat tube placement. She was subsequently transferred to [facility] where coiling of her gastric varices was attempted. She was then transferred to [facility] where she underwent splenectomy. She has had a few episodes of small volume hematemesis since the initial event. She follows with Dr. Serna. Has frequent EGDs. Patient presents today with hematemesis. She was eating today when she felt a sharp pain in her stomach and epigastric area. The pain increased. Then she had a dark colored bowel movement after which she developed nausea with 5-7 episodes of hematemesis. She reports small volume, bright to dark red blood, no coffee ground material. She denies clots. Denies CP/SOB/dizziness. Presently without nausea but feels that her stomach is full and bloated. Her last episode of hematemesis was tonight at 22:00, last BM tonight at 20:00. Patient denies EtOh use. Infrequent use of NSAIDS ER Course: Pepcid, Octreotide gtt, Protonix gtt, Zofran, NSS Principal Diagnosis Acute blood loss anemia, bleeding gastric varices Discharge Exam Constitutional WD/WN, vitals as above Eyes PERRL, conjunctivae normal, anicteric sclerae ENMT external ear and nose normal, oropharynx normal Neck trachea midline, no thyromegaly Respiratory normal respiratory effort, lungs clear to auscultation Cardiovascular RRR, no murmur, no edema Gastrointestinal (Abdomen) normal bowel sounds, soft, nontender, no hepatosplenomegaly Musculoskeletal Extremities: extremities normal to inspection; no cyanosis and no clubbing Skin no rashes, warm and dry Neurologic moves all extremities and awake; no focal motor deficits Psychiatric A+Ox3, euthymic affect Discharge Data Allergies Allergy/AdvReac Type Severity Reaction Status Date / Time Iodinated Contrast- Oral and Allergy Intermediate hives Verified 01/06/19 21:10 IV Dye Consultations 01/06/19 22:28 ED Decision to Admit Stat 01/07/19 01:16 Consult Gastroenterology Routine Procedures Performed Operation Date: 01/07/19 09:00 Actual Procedures p Esophagogastroduodenoscopy(Not Applicable) - Molham Abdulsamad, MD Operation Date: 01/08/19 07:30 Actual Procedures p Esophagogastroduodenoscopy - Kyle Torres MD Hospital Course (1) Upper GI bleed: Pt is a 23 yo female with a h/o PVT with cavernous formation and portal HTN with bleeding esophageal varices and portal gastropathy with varices possibly secondary to OCP use or previous umbilical vein catheterization presenting with hematemesis. Hgb slight drop to 13 from 15 and stable this morning, no further hematemesis or melena since the night of admission EGD with large varices seen with red husam sign, clot in stomach but unable to band due to large amount of retained food on first EGD on 01/07 Repeat EGD on 01/08 showed esophageal varices that were not bleeding and actively slowly leading gastric varices with coils eroding out. Her esophageal varices were not banded due to to the risk of worsening the bleeding from the gastric varices at the time of EGD. -GI recommended urgent transfer out for possible interventional radiology procedure for either a BRTO, tips or other shunt procedure, versus coils of the gastric varices -Continue to keep NPO, continue IVFs now -continue serial CBC and transfuse as needed-not needed right now and is hemodynamically stable -continue Protonix drip -continue Octreotide drip -Gave Reglan 10mg IV every 8 hours to clear out stomach which helped -Appreciate GI management (2) Acute blood loss anemia: as above, secondary to GIB -follow CBC (3) Esophageal varices: Patient with history of portal vein thrombosis, esophageal varices -Octreotide gtt as above -Trend H/H EGD shows varices that are nonbleeding-no banding at this time due to increased risk of worsening the bleeding from the gastric varices Will eventually need repeat esophageal varices banded (4) Asthma: Stable. 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 Walker of the hospitalist service Total Time Total Time Spent Total Time Spent (In Minutes): Greater than 30 minutes Total Time Includes: Examination of the Patient, Discharge Planning and Communication With Other Providers (Gastroenterology) Discharge Plan Discharge Items Patient Disposition: Transfer [facility] Reason For Visit: HEMATEMESIS Discharge Diagnosis: Hematemesis, Bleeding gastric varices Condition: Critical Discharge Goals: Diagnostic testing, Improve disease control, Learn about illness and Therapeutic intervention Activity: As commented below Lifting: None Bathing: No limitations Exercise/Sports: Rest today Non-emergency contact: Primary Care Provider and Nurses Medical Assistants Phlebotomists Call non-emergency contact if: you have any medication questions and your symptoms worsen Follow-up/Referrals: Teja Alfonso MD [Primary Care Provider] - Diet: Nothing by mouth Addtl Provider Instructions: Transferred urgently to [facility] Prescriptions: Continued albuterol sulfate 90 mcg/actuation Hfa Aerosol Inhaler 2 - 4 puff INHALATION Q4H PRN (Reason: Shortness Of Breath Or Wheezing) RF: 0 levonorgestrel 20 mcg/24 hours (5 yrs) 52 mg Intrauterine Device 1 ea INTRAUTERINE DIRECTED RF: 0 Stand-Alone Forms: [facility] Discharge Orders: Discharge Order (Routine); Ordered 01/08/19 Ordered By: Neeta Landrum Admission Data Admit Date/Time: 01/06/19 23:16 Attending Provider: Neeta Landrum Admit Provider: Yolis Salazar Primary Care Provider: Teja Alfonso Other Providers: Yolis Salazar ; Kyle Torres Service: Telemetry Other Pending Studies at Discharge: No
--- NOTE | 2019-01-08 13:41 | Anesthesiology Progress Note ---
Date of Service January 08, 2019 Anesthesia Post Procedure Vital Signs Vital Signs: Temp Pulse Pulse Resp BP Pulse Ox 01/08/19 12:15 36.9 C 74 18 113/74 98 01/08/19 11:59 37.2 C 72 16 108/61 95 01/08/19 11:50 72 16 103/60 92 01/08/19 11:40 72 16 101/65 92 01/08/19 11:30 80 16 92/59 L 96 01/08/19 11:20 36.8 C 71 16 104/62 96 01/08/19 09:00 51 L 01/08/19 06:59 36.7 C 64 14 99/62 L 93 01/08/19 04:00 36.5 C 75 16 107/68 93 01/07/19 23:37 36.9 C 68 16 100/63 95 01/07/19 18:54 36.6 C 66 16 100/63 91 01/07/19 15:16 36.8 C 69 20 93/57 L 91 Notes Mental Status: alert / awake / arousable Patient Amnestic to Procedure: Yes Nausea / Vomiting: adequately controlled Pain: adequately controlled Airway Patency, RR, SpO2: stable & adequate BP & HR: stable & adequate Hydration State: stable & adequate Anesthetic Complications: no major complications apparent and Pt Satisfied with anesthetic care
[2019-01-08 17:02] LABS: Basophils # (auto) 0.01 K/uL (0-0.2); Basophils % (auto) 0.1 %; Hematocrit (blood only) 39.4 % (37-47); Hemoglobin 13.7 g/dL (12.0-16.0); Immature Granulocytes # (auto) 0.01 K/uL (0.00-0.02); Immature Granulocytes % (auto) 0.1 %; Lymphocytes # (auto) 0.49 K/uL (1.2-3.4); Lymphocytes % (auto) 5.3 %; Mean Corpuscular Hgb Conc 34.8 g/dL (32-36); Mean Corpuscular Volume 92.9 fL (80-100); Mean Platelet Volume 10.4 fL (7.4-10.4); Monocytes # (auto) 0.02 K/uL (0.11-0.59); Monocytes % (auto) 0.2 %; Neutrophils # (auto) 8.74 K/uL (1.4-6.5); Neutrophils % (auto) 94.3 %; Platelet Count 236 K/uL (130-400); RDW Coefficient of Variation 14.7 % (11.5-14.5); RDW Standard Deviation 50.1 fL (36.4-46.3); Red Blood Count 4.24 M/uL (4.2-5.4); White Blood Count 9.27 K/uL (4.8-10.8)
== END 2019-01-08 18:07 | disposition short-term general hospital (02) | DRG 300 ==
LOC: ED 20:24 → 2S 23:16 → SUATTDRO 23:16 → 2S 01-07 00:31

== ENCOUNTER 2020-02-21 11:19 | Observation (INO) ==
[2020-02-21] MEDS ORDERED: SODIUM CHLORIDE 0.9% 1000ML 500 ML IV ONE (11:56)
--- NOTE | 2020-02-21 12:04 | Emergency Department Note ---
History of Present Illness General Chief complaint: Vomiting Stated complaint: VOMITING BLOOD Source: patient Mode of arrival: ambulatory Limitations: no limitations History of Present Illness Provider complaint: "I spit up a little blood this morning" Onset (ago): hour(s) 1 This 24-year-old female patient with significant past medical history of pulmonary hypertension, portal hypertension, esophageal varices, gastropathy presents to the emergency department today, ambulatory, complaining of "I spit up a little blood this morning". The patient describes approximately a palm sized amount of bright red blood which she spit up. She states there was no significant associated nausea or vomiting. The patient denies any abdominal pain or chest pain. She does have a history of massive GI bleed associated with the varices, so indicates that she becomes concerned anytime she spits up any blood. The patient denies any chest pain, dyspnea, recent fever or illness. She generally follows with [facility] in [place], but her care was recently transferred to [facility] due to the portal and pulmonary hypertension. She has not seen a director of mobile marketing in [place] yet, but is following with Dr. José, her cleaner laboratory equipment there. The patient states her most recent GI bleed was in June of last year. She did require an emergent endoscopy at that time, and was transferred to [place]. She states occasionally, she has required intervention to treat the varices. The patient states her most recent severe bleed was in 2016, requiring a transfusion. The patient states she is generally placed on octreotide in addition to the scope for her bleeds. She denies any hematochezia or melena. Home Medications Home Medications Medication Instructions Recorded Confirmed Type albuterol sulfate 2 - 4 puff INHALATION Q4H PRN 07/13/18 02/21/20 History levonorgestrel 1 ea INTRAUTERINE DIRECTED 01/06/19 02/21/20 History tadalafil (pulm. hypertension) 20 mg PO QAM 07/02/19 02/21/20 History ambrisentan 10 mg PO QAM 02/21/20 02/21/20 History Allergies Allergy/AdvReac Type Severity Reaction Status Date / Time Iodinated Contrast Media Allergy Intermediate hives Verified 02/21/20 11:39 Past Med/Surg History Medical History Acute blood loss anemia Asthma Esophageal varices Esophagovariceal bleed Gastropathy Portal hypertension Portal vein thrombosis (Acute) Pulmonary hypertension Upper GI bleed (Inactive) Surgical History History of incisional hernia repair History of splenectomy Social History Preferred Language: Faroese Communication Ability: Effective Laboratory Technical Specialist Required: No Beliefs That Will Affect Care: None Current Living Situation: Parent Feels Safe at Home: Yes Smoking Status: Never smoker Hx Alcohol Use: No Hx Substance Use: No Review of Systems A total of 10 systems reviewed and were otherwise negative Physical Exam Vital Signs Vital Signs - 24 hr 02/21/20 11:28 02/21/20 12:11 02/21/20 13:35 Temperature 36.9 C Temperature Source Oral Pulse Rate 94 H Pulse Rate [Apical] 77 Respiratory Rate 16 16 Blood Pressure 136/76 Blood Pressure [Right Arm] 112/66 Blood Pressure Mean 96 Blood Pressure Mean [Right Arm] 81 Pulse Oximetry 99 97 95 Oxygen Delivery Method Room Air Room Air Room Air Sepsis Recent Fever Within 48 Hours No Sepsis Action Taken by Nursing No Action Required VITALS: Vitals are noted on the nurse's note and reviewed by myself. Vital signs stable. No hypotension or tachycardia. Patient is afebrile. GENERAL: This is a 24-year-old white female, in no acute distress, nondiaphoretic, well-developed well-nourished. SKIN: The skin was without rashes, erythema, edema, or bruising. There is no tenting of the skin. Capillary refill less than 2 seconds. HEAD: Normocephalic atraumatic. MOUTH: Mucous membranes moist. Tonsils are not enlarged. Pharynx without blood, erythema, or exudate. Uvula midline. Airway patent. Tongue does not deviate. NECK: Supple without nuchal rigidity. No lymphadenopathy. No thyromegaly. Cervical spine is nontender. No JVD. HEART: Regular rate and rhythm without murmurs gallops or rubs. LUNGS: Clear to auscultation bilaterally without wheezes, rales or rhonchi. No retractions or accessory muscle use. ABDOMEN: Positive bowel sounds x 4. Normal tympanic percussion. Mild epigastric tenderness to palpation. Abdomen is otherwise soft, nontender, without masses or organomegaly. Arevalo sign negative. No guarding or rebound tenderness. No CVA tenderness bilaterally. MUSCULOSKELETAL: No muscle atrophy, erythema, or edema noted. Full range of motion without joint tenderness in all extremities. No tenderness to palpation. Normal gait. Strength 5/5 throughout. NEURO: Patient was alert and oriented to person place and time. No focal neurological deficits. Course Course The patient was seen and evaluated as above. An order was placed for continuous cardiac monitoring. The monitor shows a normal sinus rhythm at a rate of 77 bpm. IV access obtained, labs drawn. Patient given IV fluids. Imaging performed and reviewed by myself and radiologist as noted. Labs reviewed by myself. I discussed the case with RICHARD Field with [facility] gastroenterology. She does not feel that the patient will likely need emergent EGD, but does feel that an observation is reasonable to monitor the patient for progression or worsening of her symptoms given her history. I discussed the findings and recommendation by GI with the patient at bedside. The patient was agreeable to an observation admission. I discussed the case with my attending. I discussed the case with the financial compliance manager. I discussed the case with Dr. Wei, [facility] hospitalist. He did agree to see and evaluate the patient for admission. Administered Medications Discontinued Medications Sodium Chloride (Nss 1000ml) 500 mls @ 999 mls/hr IV .Q31M ONE Stop: 02/21/20 12:26 Last Infusion: 02/21/20 12:59 Dose: 0 mls/hr Documented by: [id number] Admin: 02/21/20 12:09 Dose: 999 mls/hr Documented by: [id number] Medical Decision Making Differential Diagnosis Diverticulosis, AVM, coagulopathy, colitis, inflammatory bowel disease, m alignancy, Soo-Pillai tear, esophagitis, peptic ulcer disease, variceal bleed, gastritis, epistaxis, fissure, hemorrhoids, as well as other pathologies. Medical Records Attestation: I reviewed the patient's medical records. Home Medications Current Medication List: was personally reviewed by me Laboratory Data Attestation: I reviewed the patient's lab results. No leukocytosis, anemia, thrombocytopenia. Renal, hepatic function, and electrolytes without significant abnormality. Coags normal. Lipase 133. hCG negative. Result diagrams: 02/21/20 12:05 02/21/20 12:05 Lab Results 02/21/20 02/21/20 02/21/20 Range/Units 12:05 12:05 12:05 WBC 5.35 (4.8-10.8) K/uL RBC 4.69 (4.2-5.4) M/uL Hgb 13.2 (12.0-16.0) g/dL Hct 39.7 (37-47) % MCV 84.6 (80-100) fL MCH 28.1 (25-34) pg MCHC 33.2 (32-36) g/dL RDW Std Deviation 58.0 H (36.4-46.3) fL RDW Coeff of Carloz 18.8 H (11.5-14.5) % Plt Count 288 (130-400) K/uL MPV 9.7 (7.4-10.4) fL Immature Gran % (Auto) 0.0 % Neut % (Auto) 22.6 % Lymph % (Auto) 47.3 % Terry % (Auto) 9.7 % Eos % (Auto) 19.3 % Baso % (Auto) 1.1 % Immature Gran # (Auto) 0.00 (0.00-0.02) K/uL Neut # (Auto) 1.21 L (1.4-6.5) K/uL Lymph # (Auto) 2.53 (1.2-3.4) K/uL Terry # (Auto) 0.52 (0.11-0.59) K/uL Eos # (Auto) 1.03 H (0-0.5) K/uL Baso # (Auto) 0.06 (0-0.2) K/uL PT 11.4 (9.0-12.0) Seconds INR 1.1 (0.9-1.1) APTT 26.4 (21.0-31.0) Seconds PTT Ratio 0.9 Sodium 140 (136-145) mmol/L Potassium 3.7 (3.5-5.1) mmol/L Chloride 110 H (98-107) mmol/L Carbon Dioxide 24 (21-32) mmol/L Anion Gap 6.0 (3-11) BUN 12 (7-18) mg/dl Creatinine 0.70 (0.6-1.2) mg/dl Est Cr Clr Drug Dosing 118.0 ml/min Est GFR ( Amer) 142.5 Est GFR (Non-Af Amer) 123.0 BUN/Creatinine Ratio 17.4 (10-20) Glucose 96 (70-99) mg/dl Calcium 9.0 (8.5-10.1) mg/dl Total Bilirubin 0.5 (0.2-1) mg/dl AST 15 (15-37) U/L ALT 27 (12-78) U/L Alkaline Phosphatase 58 (45-117) U/L Total Protein 7.4 (6.4-8.2) gm/dl Albumin 3.8 (3.4-5.0) gm/dl Globulin 3.6 (2.5-4.0) gm/dl Albumin/Globulin Ratio 1.1 (0.9-2) Lipase 133 (73-393) U/L HCG, Qual (Negative) Blood Type Antibody Screen 02/21/20 02/21/20 Range/Units 12:05 12:06 WBC (4.8-10.8) K/uL RBC (4.2-5.4) M/uL Hgb (12.0-16.0) g/dL Hct (37-47) % MCV (80-100) fL MCH (25-34) pg MCHC (32-36) g/dL RDW Std Deviation (36.4-46.3) fL RDW Coeff of Carloz (11.5-14.5) % Plt Count (130-400) K/uL MPV (7.4-10.4) fL Immature Gran % (Auto) % Neut % (Auto) % Lymph % (Auto) % Terry % (Auto) % Eos % (Auto) % Baso % (Auto) % Immature Gran # (Auto) (0.00-0.02) K/uL Neut # (Auto) (1.4-6.5) K/uL Lymph # (Auto) (1.2-3.4) K/uL Terry # (Auto) (0.11-0.59) K/uL Eos # (Auto) (0-0.5) K/uL Baso # (Auto) (0-0.2) K/uL PT (9.0-12.0) Seconds INR (0.9-1.1) APTT (21.0-31.0) Seconds PTT Ratio Sodium (136-145) mmol/L Potassium (3.5-5.1) mmol/L Chloride (98-107) mmol/L Carbon Dioxide (21-32) mmol/L Anion Gap (3-11) BUN (7-18) mg/dl Creatinine (0.6-1.2) mg/dl Est Cr Clr Drug Dosing ml/min Est GFR ( Amer) Est GFR (Non-Af Amer) BUN/Creatinine Ratio (10-20) Glucose (70-99) mg/dl Calcium (8.5-10.1) mg/dl Total Bilirubin (0.2-1) mg/dl AST (15-37) U/L ALT (12-78) U/L Alkaline Phosphatase (45-117) U/L Total Protein (6.4-8.2) gm/dl Albumin (3.4-5.0) gm/dl Globulin (2.5-4.0) gm/dl Albumin/Globulin Ratio (0.9-2) Lipase (73-393) U/L HCG, Qual Negative (Negative) Blood Type A Positive Antibody Screen NEGATIVE Imaging Data Radiologist's Impression: XR chest 1V portable CLINICAL HISTORY: hematemesis pain. Nausea. COMPARISON STUDY: 07/13/2018 FINDINGS: Mild stable cardiomegaly. Slight chronic interstitial prominence throughout both hemithoraces. Diaphragms are smooth. Unchanging 4 moderate left upper quadrant which is described described on several prior studies. IMPRESSION: 1. Mild cardiac enlargement. 2. Chronic interstitial prominence throughout both hemithoraces. ACT 112: Negative or not required by law. The above report was generated using voice recognition software. It may contain grammatical, syntax or spelling errors. Electronically signed by: Ankur Mishra M.D. 02/21/2020 12:34 PM Blood Pressure Blood Pressure Findings: Elevated blood pressure Blood Pressure Disposition: elevated BP felt to be situational MDM Narrative This 24-year-old female patient presents to the emergency department today, ambulatory, complaining of one episode of spitting up blood. The patient does have a long history of esophageal varices, portal hypertension, pulmonary hypertension, and is currently following with [place] in [place], likely will require a liver transplant. The patient does have a history of significant GI bleeds requiring transfusion in 2017. She has been followed by [facility] and has had scopes done both here and as well as in [place]. The patient appears well at this time. There has been no further episodes of hematemesis. Patient is not tachycardic or hypotensive. No melena or hematochezia. Hemoglobin is 13.2. I did discuss the case with GI. They do not feel that the patient is likely actively hemorrhaging, but do recommend observation due to her history, d/c if the patient is comfortable. I am agreeable with this plan for observation, as is the patient. The patient will be admitted to the medicine service at this time. Please see hospitalist dictation regarding ongoing management and care of this patient. The chart was completed utilizing [employer] voice recognition software. Grammatical errors, random word insertions, pronoun errors, and incomplete sentences are an occasional consequence of this system due to software limitations, ambient noise, and hardware issues. Any formal questions or concerns about the content, text, or information contained within the body of this dictation should be directly addressed to the provider for clarification. Impression & Plan Hematemesis without nausea, Esophageal varices Discharge Plan Visit Data Chief Complaint: Vomiting Stated Complaint: VOMITING BLOOD ED Provider: Joe Vences ED Midlevel Provider: Katerina Sierra Discharge Problem: Hematemesis without nausea, Esophageal varices Patient Disposition: Admitted As Inpatient Forms Stand Alone Forms: [facility] Prescriptions Prescriptions: No Action albuterol sulfate 90 mcg/actuation Hfa Aerosol Inhaler 2 - 4 puff INHALATION Q4H PRN (Reason: Shortness Of Breath Or Wheezing) RF: 0 levonorgestrel 20 mcg/24 hours (5 yrs) 52 mg Intrauterine Device 1 ea INTRAUTERINE DIRECTED RF: 0 ambrisentan 10 mg tablet 10 mg PO QAM RF: 0 tadalafil (pulm. hypertension) 20 mg tablet 20 mg PO QAM RF: 0 Referrals Referrals: Cesar Monge MD [Primary Care Provider] -
[2020-02-21 12:20] LABS: Basophils # (auto) 0.06 K/uL (0-0.2); Basophils % (auto) 1.1 %; Eosinophils # (auto) 1.03 K/uL (0-0.5); Eosinophils % (auto) 19.3 %; Hematocrit (blood only) 39.7 % (37-47); Hemoglobin 13.2 g/dL (12.0-16.0); Lymphocytes # (auto) 2.53 K/uL (1.2-3.4); Lymphocytes % (auto) 47.3 %; Mean Corpuscular Hemoglobin 28.1 pg (25-34); Mean Corpuscular Hgb Conc 33.2 g/dL (32-36); Mean Corpuscular Volume 84.6 fL (80-100); Mean Platelet Volume 9.7 fL (7.4-10.4); Monocytes # (auto) 0.52 K/uL (0.11-0.59); Monocytes % (auto) 9.7 %; Neutrophils # (auto) 1.21 K/uL (1.4-6.5); Neutrophils % (auto) 22.6 %; Platelet Count 288 K/uL (130-400); RDW Coefficient of Variation 18.8 % (11.5-14.5); Red Blood Count 4.69 M/uL (4.2-5.4); White Blood Count 5.35 K/uL (4.8-10.8)
[2020-02-21 12:26] LABS: INR 1.1 (0.9-1.1); Partial Thromboplastin Ratio 0.9; Partial Thromboplastin Time 26.4 Seconds (21.0-31.0); Prothrombin Time 11.4 Seconds (9.0-12.0)
[2020-02-21 12:32] LABS: Albumin Level 3.8 gm/dl (3.4-5.0); BUN Creatinine Ratio 17.4 (10-20); Est GFR (African American) 142.5; Potassium 3.7 mmol/L (3.5-5.1)
[2020-02-21 12:35] LABS: Albumin Globulin Ratio 1.1 (0.9-2); Bilirubin,Total 0.5 mg/dl (0.2-1); Globulin 3.6 gm/dl (2.5-4.0); Total Protein 7.4 gm/dl (6.4-8.2)
--- NOTE | 2020-02-21 12:35 | XRay Report ---
XR chest 1V portable CLINICAL HISTORY: hematemesis pain. Nausea. COMPARISON STUDY: 07/13/2018 FINDINGS: Mild stable cardiomegaly. Slight chronic interstitial prominence throughout both hemithorac es. Diaphragms are smooth. Unchanging 4 moderate left upper quadrant which is described described on several prior studies. IMPRESSION: 1. Mild cardiac enlargement. 2. Chronic interstitial prominence throughout both hemithoraces. ACT 112: Negative or not required by law. The above report was generated using voice recognition software. It may contain grammatical, syntax or spelling errors. Electronically signed by: Ankur Mishra M.D. 02/21/2020 12:34 PM
[2020-02-21 12:49] LABS: Pregnancy Test, Serum Negative (Negative)
--- NOTE | 2020-02-21 14:01 | History & Physical Report ---
Date of Service February 21, 2020 Assessment & Plan (1) Hematemesis: Observe on med/tele to detect if HR trending up as first sign of ongoing bleeding Type and screen don in ER Hgb currently H&H q6h Discussed with Tosin RAMOS ([facility]) - pantoprazole PO, no need for octreotide at this time If Hgb stable in AM can likely be discharged home (2) Pulmonary hypertension: Continue outpatient meds ambrisentan and tadaladil (3) Portal hypertension: (4) Esophageal varices: (5) Asthma: No acute exacerbation (6) H/O splenectomy: (7) Portal vein thrombosis: History of Present Illness Chief Complaint: Hematemesis Primary Care Provider: Cesar Larson MD Gisselle Roger is a medically complex 24 year old female who presents to the ER after hematemesis (spitting up around a palm full of blood). She has a complex medical history since 2016 of recurrent hematemesis with esophageal and gastric varices due to portal hypertension. In addition she has pulmonary hypertension for which she follows up with specialists in [place] hepatology. Here she is followed up [facility] but usually if she needs intervention it has to be performed at [place]. She denies any melena on this occasion although she does note this usually occurs a day later than her hematemesis. Hemoglobin at baseline in ER. 1 episode of spitting up blood this morning but has not re- occurred since then. She denies any chest pain, shortness of breath or lightheadedness. Discussed care with [facility] and option given to patient by GI to go home and return if more hematemesis or melena occurs however but myself and the ER PA and physician given her prior admissions with rapid deterioration feel uncomfortable with discharging her at this time therefore this would be against medical advice therefore she decided to stay for observation overnight. Allergies Allergy/AdvReac Type Severity Reaction Status Date / Time Iodinated Contrast Media Allergy Intermediate hives Verified 02/21/20 11:39 Home Medications Home Medications Medication Instructions Recorded Confirmed Type albuterol sulfate 2 - 4 puff INHALATION Q4H PRN 07/13/18 02/21/20 History levonorgestrel 1 ea INTRAUTERINE DIRECTED 01/06/19 02/21/20 History tadalafil (pulm. hypertension) 20 mg PO QAM 07/02/19 02/21/20 History ambrisentan 10 mg PO QAM 02/21/20 02/21/20 History Past Med/Surg History Medical History Acute blood loss anemia Asthma Esophageal varices Esophagovariceal bleed Gastropathy Portal hypertension Portal vein thrombosis (Acute) Pulmonary hypertension Upper GI bleed (Inactive) Surgical History History of incisional hernia repair History of splenectomy Family History Brother Asthma Father Asthma Other Family history non-contributory Social History Preferred Language: Burundian Communication Ability: Effective Sed Special Education Teacher Required: No Beliefs That Will Affect Care: None Current Living Situation: Family Other Information That Helps Us Care for You: No Feels Safe at Home: Yes Safety Concerns: Feels Safe At This Time Smoking Status: Never smoker Hx Alcohol Use: No Hx Substance Use: No Review of Systems Review of Systems: All systems reviewed & are unremarkable except as noted in HPI & below Physical Exam Constitutional: WD/WN, vitals as above Eyes: + anicteric sclerae; normal pupil size ENMT: external ear and nose normal, oropharynx normal Neck: trachea midline, no thyromegaly Respiratory: normal respiratory effort, lungs clear to auscultation Cardiovascular: RRR, no murmur, no edema Gastrointestinal (Abdomen): normal bowel sounds, soft, nontender, no hepatosplenomegaly Musculoskeletal: no cyanosis or clubbing, extremities motor strength 5/5 Skin: no rashes, warm and dry Neurologic: moves all extremities and awake; no focal motor deficits and not confused Psychiatric: A+Ox3, euthymic affect Genitourinary: no CVA tenderness Results & Data Results & Data ([facility]) Vital Signs (Past 12 Hours) Vital Signs Temp Pulse Pulse Resp BP BP Pulse Ox 02/21/20 13:35 77 16 112/66 95 02/21/20 12:11 97 02/21/20 11:28 36.9 C 94 H 16 136/76 99 Diagnostic Findings XR chest 1V portable IMPRESSION: 1. Mild cardiac enlargement. 2. Chronic interstitial prominence throughout both hemithoraces. Code Status & VTE Plan Code Status Full VTE Prophylaxis Plan VTE Prophylaxis will be ordered: No Reason for no VTE drug order: Contraindicated Reason for no VTE mechanical prophylaxis: Treatment not tolerated PG Care Time/CCT Total # of Minutes Spent Total Time Spent with Patient: Total time spent is greater than 50% in coordination of care (as documented) at patient's floor/unit and/or counseling patient: Coding Level of Care Code 74339 OBS Care - Level 2 Diagnoses Hematemesis K92.0 Nausea presence: without nausea Pulmonary hypertension I27.20 Portal hypertension K76.6 Esophageal varices I85.00 Asthma J45.909 H/O splenectomy Z90.81 Portal vein thrombosis I81 (1) Hematemesis Nausea presence: without nausea Qualified Code(s): K92.0 - Hematemesis
[2020-02-21] MEDS ORDERED: PANTOprazole 40 MG TAB PO STA (14:35)
--- NOTE | 2020-02-21 15:37 | Gastrointestinal Consultation ---
Date of Consultation February 21, 2020 Assessment & Plan (1) Hematemesis: Pt is a 24 y/o female w hx of PVT, portal/pulmonary HTH, esophageal, gastroesophageal varices, gastric ulcer who presented this AM w c/o hematemesis (bright red blood in vomitus, less than a palmful). VS, labs stable w/o signs of anemia, rise of BUN. Exam unremarkable w/o signs of abd pain, n/v. NO more recurrence of hematemesis nor signs of melena/rectal bleeding. I discussed options of letting pt go home vs be admitted for observation overnight. Pt prefers to be discharged home. She appears reliable and would not delay coming back to ED if she starts having any more signs of GI bleeding. However admission plans were already initiated earlier and I have asked ED team/Admitting physician to discuss further with pt to determine the final decision. If pt ends up getting admitted for observation, I would recommend her to be kept NPO except sips and chips. Monitor blood ct closely and place her on Protonix PO daily. If she starts to have further signs and symptoms of GI bleeding, would recommend her to be transferred to tertiary care facility w IR support given her complex medical hx. I reviewed pt's case with my attending physician Dr. Malini Adams who is in agreement with the above assessment and plans. Supervising Physician Co-Signing Physician Notes I have seen and examined the patient with RICHARD Hudson whose note reflects our findings and plan. Observation. If no further bleeding would discharge to home. Will need follow up for her portal HTN and h/o varices at tertiary care center. History of Present Illness Reason for Consultation: Hematemesis Requesting Physician: Dr. Shantanu Wei Attending Physician: Dr. Malini Adams History of Present Illness Pt is a 24 y/o female who presented to ED this AM w c/o hematemesis this AM around 11A. She denies any precipitating factor such as coughing, nausea. Said blood in emesis was bright red w/o clots of coffee ground appearance to it. The amount of blood was less than a palmful. She denies any other associated symptoms of light headedness, dizziness, CP, SOB, abd pain. Last BM yesterday, normal color w/o dark/tarry appearance or rectal bleeding. VS, labs all unremarkable w/o signs of anemia or rise in BUN. Pt does have complex medical hx of portal/pulmonary HTN w/o clear evidence of cirrhosis, PVT. She has been followed by [facility]. Also followed by [facility] for her pulmonary HTN, and possible discussion about liver transplant though this isn't a definite plan per pt. Her last episode of GI bleeding (hematemesis, melena) was 06/2019. EGD then revealed Grade I esophageal varices,Type 2 gastroesophageal varices, non bleeding gastric ulcer. She isn't on anticoagulant or antiplatelets. Allergies Allergy/AdvReac Type Severity Reaction Status Date / Time Iodinated Contrast Media Allergy Intermediate hives Verified 02/21/20 11:39 Home Medications Home Medications Medication Instructions Recorded Confirmed Type albuterol sulfate 2 - 4 puff INHALATION Q4H PRN 07/13/18 02/21/20 History levonorgestrel 1 ea INTRAUTERINE DIRECTED 01/06/19 02/21/20 History tadalafil (pulm. hypertension) 20 mg PO QAM 07/02/19 02/21/20 History ambrisentan 10 mg PO QAM 02/21/20 02/21/20 History Patient History Medical History Acute blood loss anemia Asthma Esophageal varices Esophagovariceal bleed Gastropathy Portal hypertension Portal vein thrombosis (Acute) Pulmonary hypertension Upper GI bleed (Inactive) Surgical History History of incisional hernia repair History of splenectomy Family History Brother Asthma Father Asthma Other Family history non-contributory Social History Preferred Language: Paraguayan Communication Ability: Effective Advertising Operations Manager Required: No Beliefs That Will Affect Care: None Current Living Situation: Family Other Information That Helps Us Care for You: No Feels Safe at Home: Yes Safety Concerns: Feels Safe At This Time Smoking Status: Never smoker Hx Alcohol Use: No Hx Substance Use: No Review of Systems Review of Systems: All systems reviewed & are unremarkable except as noted in HPI & below Physical Exam Constitutional: WD/WN, vitals as above well groomed, cooperative and comfortable Eyes: PERRL, conjunctivae normal, anicteric sclerae ENMT: external ear and nose normal, oropharynx normal Respiratory: normal respiratory effort, lungs clear to auscultation Cardiovascular: RRR, no murmur, no edema Gastrointestinal (Abdomen): normal bowel sounds, soft, nontender, no hepatosplenomegaly Skin: no rashes, warm and dry no jaundice Psychiatric: A+Ox3, euthymic affect Lymphatic: no lymphedema Results & Data ([facility]) Vital Signs (Past 12 Hours) Vital Signs Temp Pulse Pulse Resp BP BP Pulse Ox 02/21/20 15:00 69 18 102/67 96 02/21/20 14:55 74 16 93/57 L 96 02/21/20 13:35 77 16 112/66 95 02/21/20 12:11 97 02/21/20 11:28 36.9 C 94 H 16 136/76 99
[2020-02-21] MEDS: LACTATED RINGER'S 1,000 ML IV SCH ×2 (15:51→22:33)
[2020-02-21] MEDS ORDERED: ONDANSETRON INJ 2 MG/ML 2 ML VIAL IV PRN (16:49)
[2020-02-21 18:06] LABS: Hematocrit (blood only) 35.6 % (37-47); Hemoglobin 11.9 g/dL (12.0-16.0)
[2020-02-21] MEDS: TADALAFIL~ORDER AWAITING ACTION SCH ×2 (18:20→23:19)
[2020-02-22 00:19] LABS: Hematocrit (blood only) 35.2 % (37-47); Hemoglobin 11.9 g/dL (12.0-16.0)
[2020-02-22 06:10] LABS: Hematocrit (blood only) 38.6 % (37-47); Hemoglobin 12.8 g/dL (12.0-16.0); Mean Corpuscular Hemoglobin 28.3 pg (25-34); Mean Corpuscular Hgb Conc 33.2 g/dL (32-36); Mean Corpuscular Volume 85.4 fL (80-100); Mean Platelet Volume 9.8 fL (7.4-10.4); Platelet Count 277 K/uL (130-400); RDW Coefficient of Variation 18.6 % (11.5-14.5); RDW Standard Deviation 59.1 fL (36.4-46.3); Red Blood Count 4.52 M/uL (4.2-5.4); White Blood Count 5.74 K/uL (4.8-10.8)
[2020-02-22] MEDS: LACTATED RINGER'S 1,000 ML IV SCH (06:18)
[2020-02-22 06:45] LABS: BUN Creatinine Ratio 15.1 (10-20); Calcium 8.1 mg/dl (8.5-10.1); Creatinine Clr Calc Pharmacy 127.1 ml/min; Est GFR (African American) 146.1; Potassium 3.6 mmol/L (3.5-5.1)
--- NOTE | 2020-02-22 08:51 | Gastroenterology Progress Note ---
Date of Service February 22, 2020 Assessment & Plan (1) Hematemesis: Pt is a 24 y/o female w hx of PVT, portal/pulmonary HTH, esophageal, gastroesophageal varices, gastric ulcer who presented this AM w c/o hematemesis (bright red blood in vomitus, less than a palmful). VS, labs stable w/o signs of anemia, rise of BUN. Exam unremarkable w/o signs of abd pain, n/v. NO more recurrence of hematemesis nor signs of melena/rectal bleeding since before admission. - Diet restarted - No contraindication for DC home from GI standpoint today - Pt aware to return to ED if recurrence of hematemesis or any other signs of GI Bleeding (melena, rectal bleeding) - Continue routine f/u w [facility] Hepatology Admission and Anticipated Discharge Date Admission Date: February 21, 2020 Supervising Physician Co-Signing Physician Notes I have seen and examined the patient with RICHARD Hudson whose note reflects our findings and plan. Subjective No acute events overnight. Pt denies any n/v, no BMs. Also denies CP, SOB, abd pain. VS, labs stable. Review of Systems Review of Systems: All systems reviewed & are unremarkable except as noted in HPI & below Physical Exam Constitutional: WD/WN, vitals as above well groomed, cooperative and comfortable Eyes: PERRL, conjunctivae normal, anicteric sclerae ENMT: external ear and nose normal, oropharynx normal Respiratory: normal respiratory effort, lungs clear to auscultation Cardiovascular: RRR, no murmur, no edema Gastrointestinal (Abdomen): normal bowel sounds, soft, nontender, no hepatosplenomegaly Skin: no rashes, warm and dry no jaundice Psychiatric: A+Ox3, euthymic affect Lymphatic: no lymphedema Results & Data ([facility]) Vital Signs (Past 12 Hours) Vital Signs Temp Pulse Pulse Resp BP Pulse Ox 02/22/20 07:41 36.7 C 90 18 115/76 95 02/22/20 07:22 86 02/22/20 04:45 86 02/22/20 02:41 36.6 C 84 20 102/66 94 02/21/20 23:44 36.8 C 92 H 20 103/64 96 (1) Hematemesis Nausea presence: without nausea Qualified Code(s): K92.0 - Hematemesis
[2020-02-22] MEDS ORDERED: PANTOprazole 40 MG TAB PO SCH (09:00)
[2020-02-22] MEDS: TADALAFIL~ORDER AWAITING ACTION SCH (09:06)
--- NOTE | 2020-02-22 17:29 | Discharge Summary ---
Date of Service February 22, 2020 Admission HPI Per Admitting Provider Gisselle Roger is a medically complex 24 year old female who presents to the ER after hematemesis (spitting up around a palm full of blood). She has a complex medical history since 2017 of recurrent hematemesis with esophageal and gastric varices due to portal hypertension. In addition she has pulmonary hypertension for which she follows up with specialists in [place] hepatology. Here she is followed up [facility] GI but usually if she needs intervention it has to be performed at [place]. She denies any melena on this occasion although she does note this usually occurs a day later than her hematemesis. Hemoglobin at baseline in ER. 1 episode of spitting up blood this morning but has not re- occurred since then. She denies any chest pain, shortness of breath or lightheadedness. Discussed care with Tosin Painting and option given to patient by GI to go home and return if more hematemesis or melena occurs however but myself and the ER PA and physician given her prior admissions with rapid deterioration feel unco mfortable with discharging her at this time therefore this would be against medical advice therefore she decided to stay for observation overnight. Principal Diagnosis Isolated hematemesis Discharge Exam Constitutional WD/WN, vitals as above Eyes PERRL, conjunctivae normal, anicteric sclerae ENMT external ear and nose normal, oropharynx normal Neck trachea midline, no thyromegaly Respiratory normal respiratory effort, lungs clear to auscultation Cardiovascular RRR, no murmur, no edema Gastrointestinal (Abdomen) normal bowel sounds, soft, nontender, no hepatosplenomegaly Musculoskeletal no cyanosis or clubbing, extremities motor strength 5/5 Skin no rashes, warm and dry Neurologic patellar DTR's 2+ bilat, sensation intact and PERRL, EOMI, accommodation nl, no face palsy, no dysarthria Psychiatric A+Ox3, euthymic affect Lymphatic no cervical or axillary lymphadenopathy Discharge Data Allergies Allergy/AdvReac Type Severity Reaction Status Date / Time Iodinated Contrast Media Allergy Intermediate hives Verified 02/21/20 11:39 Consultations 02/21/20 13:55 ED Decision to Admit Stat 02/21/20 13:57 Consult Gastroenterology Routine Hospital Course (1) Hematemesis: Observe on med/tele Hg trending up, is 12.8 today, no further signs of bleeding Discussed with Tosin RAMOS ([facility] GI), okay for discharge to home patient knows to watch for any signs of bleeding and return to hospital would need to go to [place] for endoscopy, IR if she would have a significant bleed (2) Pulmonary hypertension: Continue outpatient meds ambrisentan and tadaladil (3) Portal hypertension: (4) Esophageal varices: (5) Asthma: No acute exacerbation (6) H/O splenectomy: (7) Portal vein thrombosis: Total Time Total Time Spent Total Time Spent (In Minutes): 22 minutes Total Time Includes: Examination of the Patient, Discharge Planning, Medication Reconciliation and Communication With Other Providers Discharge Plan Discharge Items Patient Disposition: Home - Self-Care Reason For Visit: HEMATEMESIS Discharge Diagnosis: Isolated hematemesis, no anemia Condition on Discharge: Good Goals: monitor for any further signs of bleeding (vomiting blood, dark stools) follow up routinely with [facility] hepatology Activity: Resume your previous activity Driving/Machine Use: No limitations Weightbearing: Full weightbearing Non-emergency contact: Primary Care Provider and Outdoor Pursuits Instructor Call non-emergency contact if: you have any medication questions and your symptoms worsen Follow-up/Referrals: Cesar Monge MD [Primary Care Provider] - (Please call your primary care office to see if you need to set up a follow up appointment.) Diet: Regular Addtl Attending Provider Instructions: Medications: no changes Hematemesis (vomiting blood) no further episodes, hemoglobin actually going up today, normal at 12.8 monitor for any further signs of bleeding such as vomiting blood or dark sto ols in the event you are bleeding you would likely require transfer to [place] for endoscopy, interventional radiology Pending Studies at Discharge: No Stand-Alone Forms: My [employer], Smoking Cessation Medications and DC Order Prescriptions: Continued albuterol sulfate 90 mcg/actuation Hfa Aerosol Inhaler 2 - 4 puff INHALATION Q4H PRN (Reason: Shortness Of Breath Or Wheezing) RF: 0 levonorgestrel 20 mcg/24 hours (5 yrs) 52 mg Intrauterine Device 1 ea INTRAUTERINE DIRECTED RF: 0 ambrisentan 10 mg tablet 10 mg PO QAM RF: 0 tadalafil (pulm. hypertension) 20 mg tablet 20 mg PO QAM RF: 0 Discharge Orders: Discharge Order (Routine); Ordered 02/22/20 Ordered By: Luis Felipe Diaz Admission Data Admit Date/Time: 02/21/20 13:57 Attending Provider: Luis Felipe Diaz Admit Provider: Shantanu Wei Primary Care Provider: Cesar Monge V. Other Providers: Kalli Rust ; Shantanu Wei Other Interventions: Discharge Summary Assessment (RN) Last Done: 02/22/20 10:44 DC Date/Time DO NOT enter until pt leaves facility: 02/22/20 11:26 Coding Level of Care Code 91233 OBS Care - Discharge Diagnoses Hematemesis K92.0 Nausea presence: without nausea Pulmonary hypertension I27.20 Portal hypertension K76.6 Esophageal varices I85.00 Asthma J45.909 H/O splenectomy Z90.81 Portal vein thrombosis I81
== END 2020-02-22 11:26 | disposition home or self-care (01) ==
LOC: 2N 11:19 → ED 11:19 → SUATTDRO 13:57 → 2N 16:28